=== PATIENT | male | born 1930 | race Caucasian/White ===

== ENCOUNTER 2016-09-09 12:40 | Inpatient (IN) ==
--- NOTE | 2016-09-09 12:50 | Emergency Department Note ---
Disposition Clinical Impression: CKD (chronic kidney disease), stage III, Edema, CHF (congestive heart failure) , Elevated troponin, Anemia, Acute on chronic diastolic (congestive) heart failure, Frail elderly Disposition: Admitted As Inpatient Condition: Fair Referrals: NO,PCP [Primary Care Provider] - Forms: ED Satisfaction Letter General Adult HPI - General Chief complaint: ED Shortness of Breath/Dyspnea Stated complaint: nica /cough Time Seen by Provider: 09/09/16 12:49 - History of Present Illness HPI Narrative: 85-year-old male with multiple medical problems reports to the ED via EMS for concerns for progressive shortness of breath and leg swelling. The patient has a known history of CHF and renal insufficiency. The patient reportedly has a history of atrial fibrillation. His family reports they do not think he is anticoagulated. He has a history of COPD and usually wears 3 L of oxygen. He has had a slight cough. He has not coughed up any blood. There is no history of syncope. No trouble moving the arms or legs independently no history of slurred speech or acute confusion. There is no history of fever abdominal pain vomiting or diarrhea. The patient usually takes Lasix but reports he may have not taken as much as he needs to. The patient lives in a group home. There is no history of runny nose or ear pain or sore throat. No headache or neck stiffness rash or fever. No recent falls or injuries. - Related Data Home Medications Medication Instructions Recorded Confirmed Aspirin Enteric Coated [Aspirin EC] 81 mg PO DAILY 03/12/16 04/05/16 Budesonide/Formoterol 160/4.5 2 puff IH BIDR 03/12/16 04/05/16 [Symbicort 160/4.5] Carvedilol 3.125 mg PO BID 03/12/16 04/05/16 Insulin LISPRO [Humalog] 0 unit SQ AD 03/12/16 04/05/16 Ipratropium/Albuterol Neb [Duoneb] 3 ml IH Q6H 03/12/16 04/05/16 Multivitamin [One Daily Essential] 1 each PO DAILY 03/12/16 04/05/16 Ondansetron HCl [Zofran] 4 mg PO Q6H PRN 03/12/16 04/05/16 Simvastatin [Zocor] 20 mg PO HS 03/12/16 04/05/16 TraMADol [Ultram] 50 mg PO QID PRN 03/12/16 04/05/16 Previous Rx's Medication Instructions Recorded Pantoprazole Sodium [Protonix] 40 mg PO BID 30 Days 03/15/16 Sucralfate [Carafate] 1 gm PO QIDAC 30 Days 03/15/16 Darbepoetin [Aranesp] 100 mcg SQ QWEEK syringe 04/10/16 Furosemide [Lasix] 40 mg PO BID #120 tab 04/10/16 Allergies Allergy/AdvReac Type Severity Reaction Status Date / Time No Known Allergies Allergy Verified 08/12/15 10:35 All systems ED: reviewed and negative except as stated. Past Medical History - Past Medical History Medical history: Reports: atrial fibrillation, cardiomyopathy, CHF, diabetes, hyperlipidemia, hypertension, renal disease Surgical history: Reports: pacemaker/AICD, other Psychiatric history: Reports: no psych history - Social History Smoking Status: Former smoker Smokeless Tobacco Status: No Alcohol use: Reports: none Drug use: Reports: none Physical Exam - General Limitations: no limitations General appearance: alert, in no apparent distress - Head Head exam: atraumatic, normocephalic, normal inspection - Eye Eye exam: Present: normal appearance, PERRL, EOMI - ENT ENT exam: normal exam, normal oropharynx, mucous membranes moist, TM's normal bilaterally, normal external ear exam - Neck Neck exam: Present: normal inspection, full ROM, trachea midline - Chest Chest inspection: Present: symmetric chest wall rise. Absent: tenderness - Respiratory Respiratory exam: Present: prolonged expiratory phase. Absent: respiratory distress - Cardiovascular Cardiovascular exam: Present: normal rhythm, tachycardia - Abdominal Exam Abdominal exam: Present: soft, Non-Tender, normal bowel sounds. Absent: tenderness, distention, guarding, rebound, rigidity, pulsatile mass - Extremities Exam Extremities exam: Present: full ROM, normal capillary refill, pedal edema, other (Notable edema both legs). Absent: normal inspection, tenderness, joint swelling, calf tenderness - Expanded Lower Extremity Exam Hip/Pelvis exam: Absent: tenderness Upper leg exam: Absent: tenderness Knee exam: Absent: tenderness Lower leg exam: Absent: tenderness, Homans' sign Neurovascular/Tendon exam: Absent: motor deficit, sensory deficit, tendon deficit, extremity cold to touch - Back Exam Back exam: Present: full ROM, vertebral tenderness. Absent: normal inspection, tenderness, CVA tenderness (R), CVA tenderness (L) - Neurological Exam Neurological exam: Present: alert, oriented X3, CN II-XII intact. Absent: motor sensory deficit - Psychiatric Psychiatric exam: Present: normal affect, normal mood - Skin Skin exam: Present: warm, dry, intact, normal color. Absent: rash, cyanosis, diaphoresis Course Vital Signs Temperature 97.2 F L 09/09/16 12:42 Pulse Rate 103 09/09/16 12:42 Respiratory Rate 18 09/09/16 12:42 Blood Pressure 125/90 09/09/16 12:42 O2 Sat by Pulse Oximetry 97 09/09/16 12:42 Temperature 97.2 F L 09/09/16 12:42 Pulse Rate 103 09/09/16 12:42 Respiratory Rate 18 09/09/16 14:37 Blood Pressure 125/90 09/09/16 14:37 O2 Sat by Pulse Oximetry 97 09/09/16 14:37 Oxygen Delivery Oxygen Delivery Nasal Cannula Medical Decision Making - [facility] Narrative Medical decision making narrative: He patient is elderly, somewhat tachycardic, he has significant lower extremity edema with a markedly elevated BNP and elevated troponin. His chest x-ray shows pulmonary congestion and he is complaining of dyspnea. The patient has multiple comorbidities and has been progressively more dyspneic. He was given nitro paste aspirin and Lasix in the ED. Patient has a pacemaker in situ. Initial breathing treatment was also given. The patient is currently stable. Based on his acute dyspnea, abnormal chest x-ray and cardiac markers, I think could be appropriate to admit the patient for further evaluation and treatment. The patient is currently stable. I have consulted with the hospitalist on- call. - Lab Data Lab results reviewed: Yes I reviewed the patient's lab results. Result diagrams: 09/09/16 13:21 09/09/16 13:21 Lab Results 09/09/16 09/09/16 09/09/16 Range/Units 13:20 13:21 13:21 WBC 6.5 (4.3-11.1) K/mcL RBC 3.56 L (4.19-5.50) M/mcL Hgb 9.6 L (12.9-16.9) g/dL Hct 33.6 L (37.5-50.1) % MCV 94.4 (83.0-100.0) fL MCH 27.0 L (28.0-33.3) pg MCHC 28.6 L (31.6-35.5) g/dL RDW 13.6 (11.5-14.5) % Plt Count 126 L (140-400) K/mcL MPV 12.0 (9.4-12.4) fL Immature Gran % 1.8 (0-4) % Seg Neutrophils % 79.9 % Lymphocytes % 11.3 % Monocytes % 6.0 % Eosinophils % 0.5 % Basophils % 0.5 % Neutrophils # 5.2 (1.6-8.9) K/mcL Lymphocytes # 0.7 (0.6-4.6) K/mcL Monocytes # 0.4 (0.0-1.3) K/mcL Eosinophils # 0.0 (0.0-0.6) K/mcL Basophils # 0.0 (0.0-0.2) K/mcL PT (9.4-12.1) Seconds INR APTT (26.0-36.0) Seconds Sodium 144 (136-145) mEq/L Potassium 4.7 H (3.5-4.5) mEq/L Chloride 105 (98-109) mEq/L Carbon Dioxide 28 (19-29) mEq/L BUN 112 H (8-26) mg/dL Creatinine 3.25 H (0.72-1.25) mg/dL Est GFR ( Amer) 22 L (> 60) Est GFR (Non-Af Amer) 18 L (> 60) BUN/Creatinine Ratio 34 H (6-26) Glucose 137 H (70-99) mg/dL Calculated Osmolality 336 H (280-300) Lactic Acid 0.7 (0.5-2.2) mmol/L Calcium 9.7 (8.6-10.8) mg/dL Total Bilirubin 0.5 (0.2-1.2) mg/dL Direct Bilirubin 0.3 (0.0-0.5) mg/dL Indirect Bilirubin 0.2 (0.0-1.2) mg/dL AST 22 (5-34) Units/L ALT 17 (0-55) Units/L Alkaline Phosphatase 74 (38-126) Units/L Troponin I (0-0.03) ng/mL B-Natriuretic Peptide (0-100) pg/mL Serum Total Protein 7.4 (6.0-8.3) g/dL Albumin 3.8 (3.5-5.0) g/dL Globulin 3.6 H (2.4-3.5) g/dL Albumin/Globulin Ratio 1.1 (1.1-2.2) 09/09/16 09/09/16 09/09/16 Range/Units 13:21 13:21 13:21 WBC (4.3-11.1) K/mcL RBC (4.19-5.50) M/mcL Hgb (12.9-16.9) g/dL Hct (37.5-50.1) % MCV (83.0-100.0) fL MCH (28.0-33.3) pg MCHC (31.6-35.5) g/dL RDW (11.5-14.5) % Plt Count (140-400) K/mcL MPV (9.4-12.4) fL Immature Gran % (0-4) % Seg Neutrophils % % Lymphocytes % % Monocytes % % Eosinophils % % Basophils % % Neutrophils # (1.6-8.9) K/mcL Lymphocytes # (0.6-4.6) K/mcL Monocytes # (0.0-1.3) K/mcL Eosinophils # (0.0-0.6) K/mcL Basophils # (0.0-0.2) K/mcL PT 13.1 H (9.4-12.1) Seconds INR 1.2 APTT 39.2 H (26.0-36.0) Seconds Sodium (136-145) mEq/L Potassium (3.5-4.5) mEq/L Chloride (98-109) mEq/L Carbon Dioxide (19-29) mEq/L BUN (8-26) mg/dL Creatinine (0.72-1.25) mg/dL Est GFR ( Amer) (> 60) Est GFR (Non-Af Amer) (> 60) BUN/Creatinine Ratio (6-26) Glucose (70-99) mg/dL Calculated Osmolality (280-300) Lactic Acid (0.5-2.2) mmol/L Calcium (8.6-10.8) mg/dL Total Bilirubin (0.2-1.2) mg/dL Direct Bilirubin (0.0-0.5) mg/dL Indirect Bilirubin (0.0-1.2) mg/dL AST (5-34) Units/L ALT (0-55) Units/L Alkaline Phosphatase (38-126) Units/L Troponin I 0.11 H* (0-0.03) ng/mL B-Natriuretic Peptide 2601 H (0-100) pg/mL Serum Total Protein (6.0-8.3) g/dL Albumin (3.5-5.0) g/dL Globulin (2.4-3.5) g/dL Albumin/Globulin Ratio (1.1-2.2) - Radiology Data Radiology results reviewed: Yes I reviewed the patient's radiology results.
[2016-09-09 13:40] LABS: Basophils % 0.5 %; Eosinophils % 0.5 %; Hematocrit 33.6 % (37.5-50.1); Hemoglobin 9.6 g/dL (12.9-16.9); INR 1.2; Immature Granulocytes % 1.8 % (0-4); Lymphocytes # 0.7 K/mcL (0.6-4.6); Lymphocytes % 11.3 %; Mean Corpuscular HGB Conc 28.6 g/dL (31.6-35.5); Mean Corpuscular Volume 94.4 fL (83.0-100.0); Monocytes # 0.4 K/mcL (0.0-1.3); Neutrophils # 5.2 K/mcL (1.6-8.9); Platelet Count 126 K/mcL (140-400); Prothrombin Time 13.1 Seconds (9.4-12.1); Red Blood Count 3.56 M/mcL (4.19-5.50); Red Cell Distribution Width 13.6 % (11.5-14.5); Segmented Neutrophils % 79.9 %
[2016-09-09 13:42] LABS: Activated Partial Thrombo Time 39.2 Seconds (26.0-36.0)
[2016-09-09 13:59] LABS: Albumin 3.8 g/dL (3.5-5.0); Albumin/Globulin Ratio 1.1 (1.1-2.2); Bilirubin,Direct 0.3 mg/dL (0.0-0.5); Bilirubin,Indirect 0.2 mg/dL (0.0-1.2); Bilirubin,Total 0.5 mg/dL (0.2-1.2); Calcium 9.7 mg/dL (8.6-10.8); Globulin 3.6 g/dL (2.4-3.5); Potassium 4.7 mEq/L (3.5-4.5); Total Protein 7.4 g/dL (6.0-8.3)
[2016-09-09] MEDS ORDERED: Ipratropium/Albuterol Neb 3 ML IH ONE (14:06)
[2016-09-09] MEDS ORDERED: Aspirin 325 MG TABLET PO ONE (14:18)
[2016-09-09] MEDS ORDERED: Furosemide 80 MG in 0.9 % Sodium Chloride 50 ML IVPB ONE (14:26)
[2016-09-09] MEDS ORDERED: Nitroglycerin 1 INCH/GM PACKET TP ONE (14:27)
[2016-09-09] MEDS ORDERED: Naloxone 0.4 MG/ML INJ IVP PRN (18:07)
[2016-09-09] MEDS ORDERED: Ondansetron 4 MG/2 ML VIAL IVP PRN (18:07)
[2016-09-09] MEDS ORDERED: Dextrose Gel 15 GM PO PRN ×2 (18:59)
[2016-09-09] MEDS ORDERED: *HR* Dextrose 50 % in Water (Syg) 50 ML SYRINGE IVP PRN (18:59)
[2016-09-09] MEDS ORDERED: D5% in Water 1,000 ML IV PRN (18:59)
[2016-09-09] MEDS ORDERED: Artificial Tears SOLN 15 ML BOTTLE OP PRN (19:13)
--- NOTE | 2016-09-09 19:15 | Internal Med History&Physical ---
Date of Encounter: 09/10/16 Time of Encounter: 18:30 Assessment and Plan (1) Acute exacerbation of CHF (congestive heart failure) Current visit: No Status: Acute 1. She has been experiencing increasing shortness of breath as well as increasing lower extremity edema. He has been on Lasix 80 twice a day with no relief Patient's last echo in 01/12 showed EF was 40 with mild to moderate systolic failure. We will obtain an echo 2 we will continue with Lasix 60 twice a day 3 consult nephrology concerning worsening CHF and rising creatinine 4 continue with oxygen maintain SPO2 greater than 92% 5 continue with beta katy (2) Acute on chronic renal failure Current visit: Yes Status: Acute 1 patient has had increase in his creatinine 3.5 . His baseline is 1.5-2.5. Some pulmonary congestion on his x-ray as well as increased swelling lower extremities. We will continue with IV Lasix 60 mg twice a day-closely watch creatinine 2 we will consult nephrology concerning diuresing and edema 3 monitor intake and output-Place Dawkins 4 daily weights 5 avoid nephrotoxins 6 renal diet 7 we will will obtain a renal ultrasound to rule out possibly obstruction (3) Elevated troponin Current visit: Yes Status: Acute 1 this appears to be chronic-we will cycle troponin 2 continuous cardiac monitoring (4) DVT prophylaxis Current visit: No Status: Acute Heparin subcutaneous (5) A-fib Current visit: No Status: Chronic 1 she has history of paroxysmal atrial fibrillation. He is previously on Coumadin however this was stopped due to a GI bleed. Nares on aspirin. We will continue with aspirin 2 cardiac monitoring Qualifiers: Qualified Code(s): I48.2 - Chronic atrial fibrillation Internal Medicine - H&P: HPI Chief complaint: Swelling Admitted From: Emergency Dept Plans for Post Hospital Care: Transfer Alf Facility History of present illness: Mr. Deal is a 85 year old male with extensive medical history including CK D stage III systolic heart failure pacemaker placement diabetes atrial fibrillation hyperlipidemia hypertension GI bleeding. Patient resides at [facility] according to medical records the patient was experiencing increasing shortness of breath as well as leg swelling. The patient has a known history of CHF and renal insufficiency he is on Lasix twice a day. He has chronic swelling of his lower extremities however the swelling has increased to the point he is unable to ambulate with his walker. He does wear oxygen at 3 L nasal cannula which has not improved his shortness of breath. He has had a productive cough he denies any fevers chills chest pain nausea vomiting or diarrhea. Patient was transported to the ER for further workup and evaluation. According to the ER note patient presented somewhat tachycardic with significant lower extremity edema. He had elevated BNP 2601 and elevated troponin at 0.11 however patient has chronically elevated troponins. His chest x-ray revealed pulmonary congestion. The patient was given breathing treatments and IV Lasix, his respiratory status improve he is admitted for further work up evaluation. Presently patient does not appear to be respiratory distress he is actually sleeping he arouses to verbal stimuli and answers questions appropriately. Presently denies any chest pain. Upon assessment he does have some scattered crackles and rhonchi in lung owne he has lower extremity edema is oxygen saturation is 95-97% on 2 L nasal cannula. He appears to be hemodynamically stable at this time.I reviewed this case with Dr Overton who agrees with plan assessment/plan DM type 2- accucheck Ac/HS SSI as needed goal posprandial less than 180 Past Med Surg Social Fam HX - Past Medical History Medical history: atrial fibrillation, cardiomyopathy, CHF, diabetes, hyperlipidemia, hypertension, renal disease Psychiatric history: no psych history - Past Surgical History Surgical History: pacemaker/AICD, other - Social History Smoking Status: Former smoker Smokeless Tobacco Status: No Alcohol use: none Drug use: none - Family History Mother Living Status: Hx Family Cardiac Disorders: Yes Hx Family Cancer: Yes ("female cancer") Father Living Status: Hx Family Cancer: Yes (lung cancer) Sister Adopted: No Living Status: Hx Family Cancer: Yes (1) "female cancer" 2) breast cancer) Internal Medicine - H&P: Meds Aspirin Enteric Coated [Aspirin EC] 81 mg PO DAILY 03/12/16 [History] Carvedilol 3.125 mg PO BID 03/12/16 [History] Insulin LISPRO [Humalog] 2 - 12 unit SQ AD 03/12/16 [History] Ipratropium/Albuterol Neb [Duoneb] 3 ml IH Q6H 03/12/16 [History] Multivitamin [One Daily Essential] 1 each PO DAILY 03/12/16 [History] Ondansetron HCl [Zofran] 4 mg PO Q6H PRN 03/12/16 [History] Simvastatin [Zocor] 20 mg PO HS 03/12/16 [History] Sucralfate [Carafate] 1 gm PO QIDAC 30 Days 03/15/16 [Rx] Darbepoetin [Aranesp] 100 mcg SQ QMONTH 09/09/16 [History] Fluticasone/Salmeterol [Advair 500-50 Diskus] 1 puff IH BID 09/09/16 [History] Furosemide [Lasix] 80 mg PO BID 09/09/16 [History] Guaifenesin [Diabetic Tussin Ex] 100 mg PO Q6H PRN 09/09/16 [History] Loratadine [Allergy Relief] 10 mg PO DAILY 09/09/16 [History] Omeprazole [PriLOSEC] 20 mg PO BID 09/09/16 [History] Polyvinyl Alcohol [Artificial Tears] 1 drop OP TID PRN 09/09/16 [History] Sodium Chloride/Aloe Vera [[place] Saline Nasal Gel [place]] 1 spr NS TID 09/09/16 [ History] Allergies No Known Allergies Allergy (Verified 08/12/15 10:35) All Systems PM: A 10-system review of systems was performed and is negative for pertinent findings except as documented above in the HPI. - Constitutional Constitutional: weakness, weight gain - EENT Eyes: no change in vision, no discharge, no pain, no photophobia - Cardiovascular Cardiovascular ROS IM: dyspnea, dyspnea on exertion, edema - Respiratory Respiratory: cough, dyspnea on exertion - Gastrointestinal Gastrointestinal: no abdominal pain, no diarrhea, no hematemesis, no hematochezia, no melena, no nausea, no vomiting - Musculoskeletal Musculoskeletal ROS IM: no numbness, no tingling - Integumentary Integumentary IM: no rash, no unusual bruising - Neurological Neurological ROS: no confusion, no convulsions, no focal weakness, no numbness, no tingling, no tremor(s) - Constitutional Vitals: Temp Pulse Resp BP Pulse Ox 97.5 F L 105 18 113/88 94 L 09/09/16 19:12 09/09/16 19:12 09/09/16 19:12 09/09/16 18:02 09/09/16 19:12 General appearance: Present: A&O X 3, answers questions appropriately - Head Head exam: Present: atraumatic, normocephalic - Neck Neck exam general surgery: Present: supple, trachea midline. Absent: lymphadenopathy - Respiratory Respiratory exam: Present: rales, rhonchi. Absent: accessory muscle use, wheezes - Cardiovascular Cardiovascular exam: Present: RRR, +S1, +S2. Absent: diastolic murmur, gallop, rubs, systolic murmur - GI/Abdominal GI/Abdominal exam: Present: normal bowel sounds, soft, no peritoneal signs. Absent: distended, tenderness - Extremities Exam Extremities exam: Present: pedal edema, warm, radial pulses palpable and symetrical. Absent: calf tenderness, cyanotic Additional comments: +2-+3 pedal edema bilat - Neurological Exam Neurological exam: Present: CN II-XII intact, oriented X3, no focal deficits. Absent: pronater drift, facial droop, speech deficit - Skin Skin exam: Present: dry, intact Internal Med - H&P Results - Labs CBC & Chem 7: 09/09/16 13:21 09/09/16 13:21 - Diagnostic Studies Chest x-ray Additional comments: Per radiology read mild bibasilar atelectasis and pulmonary vascular congestion
[2016-09-09] MEDS: SODIUM CHLORIDE NS SCH (20:02)
[2016-09-09] MEDS: ALOE VERA NS SCH (20:02)
[2016-09-09] MEDS: Sucralfate 1 GM TABLET PO SCH (20:03)
[2016-09-09] MEDS: Budesonide/Formoterol 160/4.5 MDI IH SCH (22:10)
[2016-09-09] MEDS: Ipratropium/Albuterol Neb 3 ML IH SCH (22:11)
[2016-09-09] MEDS ORDERED: Furosemide 40 MG/4 ML VIAL IVP SCH ×3 (22:18→23:00)
[2016-09-09] MEDS ORDERED: Calcium Gluconate 1,000 MG in D5% in Water 100 ML IVPB ONE (22:25)
--- NOTE | 2016-09-09 22:28 | Event Note ---
Date of Encounter: 09/09/16 Time of Encounter: 22:25 Patient seen and examined with nurse practitioner. Patient presents with a picture of congestive heart failure. He has worsening kidney functions. Currently CKD stage IV. His Lasix has been increased at [facility] to 80 mg twice a day without improvement. We will place a Dawkins catheter to monitor urine output and without obstruction. Renal ultrasound will be performed. Lasix 60 mg intravenous twice a day will be started. Monitor urine output. Nephrology to see the patient.
[2016-09-09] MEDS: Insulin LISPRO 300 UNITS/3 ML VIAL SQ SCH (22:29)
[2016-09-10 01:53] LABS: Eosinophils % 0.4 %; Hemoglobin 9.4 g/dL (12.9-16.9); Immature Granulocytes % 1.3 % (0-4); Platelet Count 113 K/mcL (140-400)
[2016-09-10 01:58] LABS: Basophils % 0.5 %; Hematocrit 32.1 % (37.5-50.1); Lymphocytes # 0.9 K/mcL (0.6-4.6); Lymphocytes % 15.2 %; Mean Corpuscular HGB Conc 29.3 g/dL (31.6-35.5); Mean Corpuscular Hemoglobin 27.8 pg (28.0-33.3); Mean Platelet Volume 12.3 fL (9.4-12.4); Monocytes # 0.6 K/mcL (0.0-1.3); Monocytes % 10.2 %; Nucleated Red Blood Cells 0.4 /100 WBC (0); Red Blood Count 3.38 M/mcL (4.19-5.50); Red Cell Distribution Width 13.8 % (11.5-14.5); Segmented Neutrophils % 72.4 %
[2016-09-10 02:01] LABS: Calcium 9.7 mg/dL (8.6-10.8); Magnesium 2.3 mg/dL (1.6-2.6); Phosphorous 6.8 mg/dL (2.3-4.7); Potassium 4.7 mEq/L (3.5-4.5)
[2016-09-10 02:02] LABS: Neutrophils # 4.1 K/mcL (1.6-8.9)
[2016-09-10 02:28] LABS: Hypochromasia Present (Not Present); Ovalocytes 1+ (Not Present); Platelet Estimate Decreased (Normal)
[2016-09-10] MEDS: Ipratropium/Albuterol Neb 3 ML IH SCH ×4 (04:33→22:22)
[2016-09-10] MEDS: Insulin LISPRO 300 UNITS/3 ML VIAL SQ SCH ×4 (08:06→21:50)
[2016-09-10] MEDS: Budesonide/Formoterol 160/4.5 MDI IH SCH ×2 (09:06→22:22)
[2016-09-10] MEDS: Sucralfate 1 GM TABLET PO SCH ×4 (10:05→21:59)
[2016-09-10] MEDS: Aspirin Enteric Coated 81 MG Tablet PO SCH (10:05)
[2016-09-10] MEDS: Multivit/Ca/Min/Fe/FA 1 TAB TABLET PO SCH (10:05)
[2016-09-10] MEDS: *HR* Heparin 5,000 UNIT/ML VIAL SQ SCH ×2 (10:05→17:09)
[2016-09-10] MEDS: Loratadine 10 MG TABLET PO SCH (10:05)
[2016-09-10] MEDS: Furosemide 40 MG/4 ML VIAL IVP SCH ×2 (10:06→17:08)
[2016-09-10] MEDS: ALOE VERA NS SCH ×3 (10:07→22:00)
[2016-09-10] MEDS: SODIUM CHLORIDE NS SCH ×3 (10:07→22:00)
--- NOTE | 2016-09-10 13:29 | Nephrology Consult Note ---
Date of Encounter: 09/10/16 Time of Encounter: 13:00 Assessment and Plan (1) DARON (acute kidney injury) Current Visit: Yes Status: Acute Elevated SCr in the setting of presumed CHF and diuretics Will check uric acid and CPK Will check urine for UA, sodium, creatinine, eosinophils and urea Will avoid all nephrotoxins if possible Goal of care discussed with patient and family and he affirms willingness to have RN OCCUPATIONAL if and when absolutely necessary (2) CKD (chronic kidney disease), stage III Current Visit: Yes Status: Chronic Baseline GFR 30-40s (3) Acute exacerbation of CHF (congestive heart failure) Current Visit: Yes Status: Acute Strict I/Os advised Continue lasix iv at current dose and add albumin to aid diuresis Keep LE elevated as much as possible Fluid restriction also advised Echo results pending Qualifiers: Congestive heart failure type: systolic Qualified Code(s): I50.23 - Acute on chronic systolic (congestive) heart failure History of Present Illness - Reason for Consult Consult date: 09/10/16 Acute Kidney Injury, Chronic Kidney Disease Requesting physician: Sandra Laws - History of Present Illness 85 y o AAmale with PMH of HTN, CAD, pAfib off coumadin due to GIB, DM, s/p pacemaker and stage 3 CKD [facility] with worsening SOB and LE edema despite lasix 80mg bid. CXR noted with congestion on presentation with diuresis initiated. Renal consulted for management of renal function during diuresis. SCr noted elevated at 3.25, GFR 22 on presentation and worsening to 3.59, GFR 20 with lasix 60mg iv bid. Baseline SCR usually in the high 1.0s around 1.6-1.9 but has had bouts of AKIs reaching 2.5 with GFR typically 30-40s. He is a poor historian, most of history obtained from records and from family present at the time of exam. He is reports his gayle was hurting but otherwise denies SOB at present. No chest pain. reviewed of meds did not show any NSAIDs use. Past Med Surg Social Fam HX - Past Medical History Medical history: atrial fibrillation, cardiomyopathy, CHF, diabetes, hyperlipidemia, hypertension, renal disease Psychiatric history: no psych history - Past Surgical History Surgical History: pacemaker/AICD, other - Social History Smoking Status: Former smoker Smokeless Tobacco Status: No Alcohol use: none Drug use: none - Family History Mother Living Status: Hx Family Cardiac Disorders: Yes Hx Family Cancer: Yes ("female cancer") Father Living Status: Hx Family Cancer: Yes (lung cancer) Sister Adopted: No Living Status: Hx Family Cancer: Yes (1) "female cancer" 2) breast cancer) Medications and Allergies Aspirin Enteric Coated [Aspirin EC] 81 mg PO DAILY 03/12/16 [History] Carvedilol 3.125 mg PO BID 03/12/16 [History] Insulin LISPRO [Humalog] 2 - 12 unit SQ AD 03/12/16 [History] Ipratropium/Albuterol Neb [Duoneb] 3 ml IH Q6H 03/12/16 [History] Multivitamin [One Daily Essential] 1 each PO DAILY 03/12/16 [History] Ondansetron HCl [Zofran] 4 mg PO Q6H PRN 03/12/16 [History] Simvastatin [Zocor] 20 mg PO HS 03/12/16 [History] Sucralfate [Carafate] 1 gm PO QIDAC 30 Days 03/15/16 [Rx] Darbepoetin [Aranesp] 100 mcg SQ QMONTH 09/09/16 [History] Fluticasone/Salmeterol [Advair 500-50 Diskus] 1 puff IH BID 09/09/16 [History] Furosemide [Lasix] 80 mg PO BID 09/09/16 [History] Guaifenesin [Diabetic Tussin Ex] 100 mg PO Q6H PRN 09/09/16 [History] Loratadine [Allergy Relief] 10 mg PO DAILY 09/09/16 [History] Omeprazole [PriLOSEC] 20 mg PO BID 09/09/16 [History] Polyvinyl Alcohol [Artificial Tears] 1 drop OP TID PRN 09/09/16 [History] Sodium Chloride/Aloe Vera [[place] Saline Nasal Gel [place]] 1 spr NS TID 09/09/16 [ History] Allergies No Known Allergies Allergy (Verified 08/12/15 10:35) Review of Systems All Systems: reviewed and no additional remarkable complaints except as stated ( 10 systems reviwed and as noted in HPI) Exam - Vital Signs Vital signs: Initial Vital Signs Temp Pulse Resp BP Pulse Ox 97.2 F L 103 18 125/90 97 09/09/16 12:42 09/09/16 12:42 09/09/16 12:42 09/09/16 12:42 09/09/16 12:42 Vital Signs - Last 8 Hours Temp Pulse Resp BP Pulse Ox 09/10/16 11:12 97.6 F 82 20 98/68 93 L 09/10/16 10:16 95 09/10/16 09:08 16 95 09/10/16 07:52 97.5 F L 71 16 121/65 95 Intake and Output 09/09/16 09/10/16 09/10/16 23:59 07:59 15:59 Intake Total 120 / 120 Output Total 250 / 250 500 / 500 Balance -250 / -250 -380 / -380 Intake: Oral 120 / 120 Output: Catheter 250 / 250 500 / 500 Other: Meal Breakfast Percent of Meal Consumed 100% # Urine Diapers 1 Weight 100 kg 102.1 kg Blood Glucose* 109 124 171 Patient Weight 09/10/16 23:59 Weight 102.1 kg - General Appearance General appearance: chronically ill (NAD) EENT: ATNC, mucous membranes dry Neck: no JVD, supple Additional Comments: decreased BS bases bilat Cardiology: edema (LE bilat +2-3), normal S1, normal S2 Gastrointestinal: no tenderness, no guarding Integumentary: warm and dry Neurologic: no focal deficit Musculoskeletal: no deformities Psychiatric: mood/affect appropriate Results - Lab Results 09/14/16 06:40 09/14/16 06:40 Most recent lab results Calcium 9.7 mg/dL (8.6-10.8) 09/10/16 01:28 Phosphorus 6.8 mg/dL (2.3-4.7) H 09/10/16 01:28 Magnesium 2.3 mg/dL (1.6-2.6) 09/10/16 01:28 Consult Discharge Plan - Plan Referrals: NO,PCP [Primary Care Provider] - (Patient will follow up with F pcp)
[2016-09-10 13:53] LABS: Bilirubin,Urine Negative (Negative); Blood,Urine Large (Negative); Clarity,Urine Turbid (Clear); Color,Urine Red (Yellow); Glucose,Urine (UA) Normal (Normal); Ketones,Urine Trace mg/dL (Negative); Leukocyte Esterase,Urine Moderate (Negative); Nitrite,Urine Negative (Negative); PH,Urine 5.5 pH Units (5.0-8.0); Protein,Urine 100 mg/dL (Neg-Trace); Specific Gravity,Urine 1.013 (1.010-1.025); Urobilinogen,Urine Normal (Normal)
[2016-09-10 13:55] LABS: Bacteria,Urine None Seen per hpf (None-Few); Hyaline Casts,Urine Few per lpf (None-Few); Squamous Epithelial Cell,Urine Many per lpf (None-Few); WBC,Urine 30-50 per hpf (0-3)
--- NOTE | 2016-09-10 14:14 | Electrocardiograph Report ---
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
--- NOTE | 2016-09-10 16:32 | Internal Med Progress Note ---
Date of Encounter: 09/10/16 Time of Encounter: 16:29 - Assessment and plan (1) Acute on chronic renal failure Current Visit: Yes Status: Acute Assessment and plan: patient has had increase in his creatinine 3.5 . His baseline is 1.5-2.5. creatinine is worse today. his urine appears grossly red. 750mls in the catheter. sent ua which shows large blood but only 3-5 rbc, sent ck levels and urine myoglobin. 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 renal has been cosnulted. renal US is pending. may need HD. (2) CHF (congestive heart failure), NYHA class III Current Visit: No Status: Chronic Assessment and plan: CXR shows mild congestion. Patient's last echo in 01/12 showed EF was 40 with mild to moderate systolic failure. We will obtain an echo continue asa, BB , statin Qualifiers: Congestive heart failure type: systolic Congestive heart failure chronicity : chronic Qualified Code(s): I50.22 - Chronic systolic (congestive) heart failure (3) NSTEMI (non-ST elevated myocardial infarction) Current Visit: No Status: Acute Assessment and plan: adynamic, denies chest pain no further intervention required. (4) History of atrial fibrillation Current Visit: No Status: Chronic (5) IDDM (insulin dependent diabetes mellitus) Current Visit: No Status: Chronic (6) COPD (chronic obstructive pulmonary disease) Current Visit: No Status: Chronic Assessment and plan: stable Qualifiers: COPD type: emphysema Emphysema type: centrilobular Qualified Code(s): J43.2 - Centrilobular emphysema - Time Spent With Patient 25 - 35 minutes - Subjective Interval history: seen at the bedside,patient appear to be in no acute respiratory distress. he was brought from [facility] for worsening swelling and sob. workup showed worsening renal function, he hs red urine in the gayle. nephrology has been consulted. - Constitutional Vitals: Temp Pulse Resp BP Pulse Ox 97.7 F 92 18 112/70 98 09/10/16 16:23 09/10/16 16:23 09/10/16 16:23 09/10/16 16:23 09/10/16 16:23 General appearance: Present: A&O X 3, answers questions appropriately Exam: - Head Head exam: Present: atraumatic, normocephalic - Neck Neck exam general surgery: Present: supple, trachea midline. Absent: lymphadenopathy - Respiratory Respiratory exam: Present: occ basilar rales.. Absent: accessory muscle use, wheezes - Cardiovascular Cardiovascular exam: Present: RRR, +S1, +S2. Absent: diastolic murmur, gallop, rubs, systolic murmur - GI/Abdominal GI/Abdominal exam: Present: normal bowel sounds, soft, no peritoneal signs. Absent: distended, tenderness - Extremities Exam Extremities exam: Present: pedal edema, warm, radial pulses palpable and symetrical. Absent: calf tenderness, cyanotic Additional comments: +2-+3 pedal edema bilat - Neurological Exam Neurological exam: Present: CN II-XII intact, oriented X3, no focal deficits. Absent: pronater drift, facial droop, speech deficit - Skin Skin exam: Present: dry, intact Internal Medicine: Result - Labs CBC & Chem 7: 09/10/16 01:28 09/10/16 01:28 Labs: Short CBC 09/10/16 Range/Units 01:28 WBC 5.6 (4.3-11.1) K/mcL Hgb 9.4 L (12.9-16.9) g/dL Hct 32.1 L (37.5-50.1) % Plt Count 113 L (140-400) K/mcL Neutrophils # 4.1 (1.6-8.9) K/mcL BMP 09/10/16 01:28 Sodium 144 Potassium 4.7 H Chloride 104 Carbon Dioxide 31 H BUN 118 H Creatinine 3.59 H Glucose 142 H Calcium 9.7 Cardiac Enzymes 09/09/16 09/10/16 Range/Units 19:02 01:28 Troponin I 0.12 H* 0.12 H* (0-0.03) ng/mL Urine 09/10/16 Range/Units 13:46 Urine Color Red A (Yellow) Urine Clarity Turbid A (Clear) Urine pH 5.5 (5.0-8.0) pH Units Ur Specific [place] 1.013 (1.010-1.025) Urine Protein 100 H (Neg-Trace) mg/dL Urine Glucose (UA) Normal (Normal) mg/dL - ABG Interpretation ABG results: PT/INR, D-dimer PT 13.1 Seconds (9.4-12.1) H 09/09/16 13:21 Consult Discharge Plan - Plan Referrals: NO,PCP [Primary Care Provider] -
[2016-09-10] MEDS: Albumin 25% 25gram/100mL 25 GM/100 ML IV.SOLN IVPB SCH (17:01)
[2016-09-11] MEDS: Acetaminophen 325 MG TABLET PO PRN (00:04)
[2016-09-11] MEDS: Ipratropium/Albuterol Neb 3 ML IH SCH ×2 (04:45→10:42)
[2016-09-11] MEDS: *HR* Heparin 5,000 UNIT/ML VIAL SQ SCH ×2 (06:07→19:11)
[2016-09-11 07:22] LABS: Basophils % 0.5 %; Eosinophils # 0.1 K/mcL (0.0-0.6); Eosinophils % 1.3 %; Hematocrit 29.2 % (37.5-50.1); Hemoglobin 8.8 g/dL (12.9-16.9); Immature Granulocytes % 0.5 % (0-4); Lymphocytes # 0.8 K/mcL (0.6-4.6); Lymphocytes % 14.4 %; Mean Corpuscular HGB Conc 30.1 g/dL (31.6-35.5); Mean Corpuscular Hemoglobin 27.5 pg (28.0-33.3); Mean Corpuscular Volume 91.3 fL (83.0-100.0); Mean Platelet Volume 12.2 fL (9.4-12.4); Monocytes # 0.5 K/mcL (0.0-1.3); Monocytes % 8.8 %; Neutrophils # 4.1 K/mcL (1.6-8.9); Platelet Count 107 K/mcL (140-400); Red Cell Distribution Width 13.9 % (11.5-14.5); Segmented Neutrophils % 74.5 %
[2016-09-11 07:25] LABS: Calcium 9.2 mg/dL (8.6-10.8)
[2016-09-11] MEDS: Insulin LISPRO 300 UNITS/3 ML VIAL SQ SCH ×4 (07:48→21:37)
[2016-09-11] MEDS: SODIUM CHLORIDE NS SCH ×2 (07:49→14:15)
[2016-09-11] MEDS: ALOE VERA NS SCH ×2 (07:49→14:15)
[2016-09-11] MEDS: Aspirin Enteric Coated 81 MG Tablet PO SCH (08:00)
[2016-09-11] MEDS: Sucralfate 1 GM TABLET PO SCH ×4 (08:01→21:36)
[2016-09-11] MEDS: Loratadine 10 MG TABLET PO SCH (08:01)
[2016-09-11] MEDS: Multivit/Ca/Min/Fe/FA 1 TAB TABLET PO SCH (08:01)
[2016-09-11] MEDS: Furosemide 40 MG/4 ML VIAL IVP SCH ×2 (08:03→19:11)
[2016-09-11] MEDS: Albumin 25% 25gram/100mL 25 GM/100 ML IV.SOLN IVPB SCH ×2 (08:12→19:11)
--- NOTE | 2016-09-11 09:53 | ECHO - Doppler Report ---
Echocardiogram Name: Jose Deal Date of Study: 09/10/2016 Date: 1930 Ht: 71.0 in Medical Record#: [id number] Age: 85 Wt: 225.0 lb Gender: Male BSA: 2.22 Order #: [id number] Location: [facility] Room #: 2A36 Reading Physician: Brown Long DO, CORINNA, GUILLERMINA DIOR Synchro Assembler: Rosy Faustin RDCS Ordering Physician: Michael Beckett MD Primary Physician: None Indications: Shortness of breath Impressions: LVEF 25-30%. Severely dilated left ventricle. Global left ventricular systolic dysfunction with regional variations. Atypical septal motion consistent with paced rhythm. Indeterminate diastolic function. Dilated appearing right ventricle with mild hypokinesis. Severely dilated left atrium. Severely dilated right atrium. Mild-moderate mitral regurgitation. Mild-moderate tricuspid regurgitation. Moderate-severe pulmonary hypertension. Estimated RVSP is 54-59 mmHg, including an estimated RA pressure of 5-10 mmHg. A device lead was visualized in the right atrium and right ventricle. Left Ventricular Wall Motion: Rest Echo Findings The apex, apical inferior, mid inferior, basal inferior, apical anterior, mid anterior, basal anterior, apical septal, mid inferior septal, basal inferior septal, apical lateral, mid anterior lateral, basal anterior lateral, mid anterior septal, mid inferior lateral, basal anterior septal and basal inferior lateral yost were hypokinetic. Findings: Study Quality * Technically sub-optimal due to poor echocardiographic windows. ECG Findings * Paced rhythm. Left Ventricle * LVEF 25-30%. * Severely dilated left ventricle. * Global left ventricular systolic dysfunction with regional variations. * Atypical septal motion consistent with paced rhythm. * Indeterminate diastolic function. Right Ventricle * Dilated appearing right ventricle with mild hypokinesis. Left Atrium * Severely dilated left atrium. Right Atrium * Severely dilated right atrium. Interatrial Septum * Interatrial septum not well evaluated. Aortic Valve * Aortic valve not well visualized. * Trace aortic regurgitation. * No aortic stenosis. Mitral Valve * Mildly thickened mitral valve leaflets. * Mild-moderate mitral regurgitation. * No mitral stenosis. Tricuspid Valve * Normal tricuspid valve structure. * Mild-moderate tricuspid regurgitation. * Moderate-severe pulmonary hypertension. * Estimated RVSP is 54-59 mmHg. * Estimated RA pressure is 5-10 mmHg. Pulmonic Valve * Pulmonic valve not well visualized. Aorta * Normally sized aortic root. Pericardium * The pericardium appears normal. IVC * The IVC is dilated. * > 50% respiratory change Device lead * A device lead was visualized in the right atrium and right ventricle. Pulmonary Artery * Normal visualized portions of the main pulmonary artery. History Hypertension Diabetes Hypercholesteremia Family History of CAD History of CAD/PTCA Myocardial Infarction Congestive Heart Failure Pacer/ICD Implant 12-30-15 a Previous Echo was performed. Measurements: BP: 108/ 69 2D Normal Values RVIDd: 3.50 cm <2.7 cm IVSd: 1.00 cm 0.6 - 1.0 cm LVIDd: 7.50 cm 3.7 - 5.6 cm LVPWd: 1.20 cm 0.6 - 1.1 cm LVIDs: 7.00 cm 1.5 - 3.6 cm AO: 2.90 cm < 4.0 cm LA: 5.60 cm 2.0 - 4.0cm %FS: 6.67 cm >25 % LVOT Diam: 2.10 cm LA volume: 107 Mitral Valve Peak E:.87 m/sec Peak A:.27 m/sec E/A Ratio:3.2 Peak E' Lat Alex:5.17 cm/s Peak E' Med Alex:5 cm/s E/E' Lat Ratio:16.8 E/E' Med Ratio:17.4 Aortic Valve AI pressure Half-time: 918.00 msec Tricuspid Valve TV Regurg Peak Grad: 49.00mmHg TV Regurg Peak Alex: 3.51m/sec Updated by Brown Long DO, FACEran, GUILLERMINA DIOR on 09/11/2016 9:46:59 AM electronically signed on 09/11/2016 9:47:51 AM with status of Final Wall Motion [place]: 1=Normal, 2=Hypokinesis, 3=Akinesis, 4=Dyskinesis, 5=Aneurysmal, 6=Hyperkinetic, X=Not Visualized (Blank)=Missing
[2016-09-11] MEDS: Budesonide/Formoterol 160/4.5 MDI IH SCH ×2 (10:42→22:59)
--- NOTE | 2016-09-11 13:29 | Nephrology Progress Note ---
Date of Encounter: 09/11/16 Time of Encounter: 11:15 - Assessment and Plan (1) DARON (acute kidney injury) Current Visit: Yes Status: Acute SCr about the same at 3.55, GFR 20. Pt aware of potential need for SYNTHETIC FILAMENT EXTRUDER if renal function worsens and he is very open to this if absolutely needed UOP at 1700cc in the past 24hrs which is acceptable Continue albumin before lasix Keep LE elevated as much as possible (2) CKD (chronic kidney disease), stage III Current Visit: Yes Status: Chronic Baseline GFR typically 30-40s (3) CHF (congestive heart failure) Current Visit: Yes Status: Acute Qualifiers: Qualified Code(s): I50.23 - Acute on chronic systolic (congestive) heart failure Subjective Interval history: Pt seen and examined complaining LE edema worse when sitting up. He reports SOB about the same or slightly better Objective - Vital Signs Vital signs: Vital Signs Temp Pulse Resp BP Pulse Ox 09/11/16 11:39 97.9 F 86 19 120/76 95 09/11/16 10:42 16 96 09/11/16 08:00 96 09/11/16 07:42 97.5 F L 71 16 103/66 96 09/11/16 05:10 97.6 F 81 16 113/74 98 09/11/16 04:45 18 96 09/11/16 00:38 97.9 F 80 17 107/72 94 L 09/10/16 22:22 20 97 09/10/16 20:55 97.6 F 103 17 137/84 96 09/10/16 16:23 97.7 F 92 18 112/70 98 09/10/16 15:23 20 93 L Intake and Output 09/10/16 09/11/16 09/11/16 23:59 07:59 15:59 Intake Total 100 / 100 400 / 400 360 / 360 Output Total 950 / 950 300 / 300 0 / 0 Balance -850 / -850 100 / 100 360 / 360 Intake: IV Fluids 100 / 100 Flexbumin 25 gm In 100 ml 100 / 100 @ 60 mls/hr IVPB BIDDIURETIC BHAVYA Rx#: [id number] Oral 400 / 400 360 / 360 Output: Urine 0 / 0 Catheter 950 / 950 300 / 300 Other: Meal Breakfast Percent of Meal Consumed 60% Stool Size Moderate Stool Consistency soft Stool Color Brown # Bowel Movement Diapers 1 Weight 103 kg Blood Glucose* 115 111 163 Patient Weight 09/11/16 23:59 Weight 103 kg - General Appearance General appearance: Present: chronically ill (NAD) EENT: Present: ATNC, mucous membranes moist Neck: Present: no JVD, supple Respiratory: Present: course breath sounds Cardiology: Present: edema (LE bilat), normal S1, normal S2 Gastrointestinal: Present: no tenderness, no guarding Integumentary: Present: warm and dry Neurologic: Present: no focal deficit Musculoskeletal: Present: no deformities Psychiatric: Present: mood/affect appropriate, cooperative - Lab 09/11/16 06:37 09/11/16 06:37 Most recent lab results Calcium 9.2 mg/dL (8.6-10.8) 09/11/16 06:37 Phosphorus 6.8 mg/dL (2.3-4.7) H 09/10/16 01:28 Magnesium 2.3 mg/dL (1.6-2.6) 09/10/16 01:28 Urine Creatinine 72 mg/dL 09/10/16 13:50 Urine Sodium 44.0 mEq/L 09/10/16 13:50 Consult Discharge Plan - Plan Referrals: NO,PCP [Primary Care Provider] - (Patient will most likely go to [facility])
[2016-09-11] MEDS ORDERED: Saline Nasal Spray 44 ML BOTTLE NS PRN (14:55)
--- NOTE | 2016-09-11 17:46 | Internal Med Progress Note ---
Date of Encounter: 09/11/16 Time of Encounter: 17:42 - Assessment and plan (1) Acute on chronic renal failure Current Visit: Yes Status: Acute Assessment and plan: patient has had increase in his creatinine 3.5 . His baseline is 1.5-2.5. creatinine the same as yesterday today his urine appears much clearer today. sent ua which shows large blood but only 3-5 rbc, sent ck levels and urine myoglobin. 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 Another Possible differential is cardiorenal syndrome specially with the worsening LVEF. renal has been cosnulted. renal US is pending. Monitor the renal function. (2) CHF (congestive heart failure), NYHA class III Current Visit: No Status: Chronic Assessment and plan: CXR shows mild congestion, preseneted with SOB most likely from acute exacerbation of CHF. Patient's last echo in 01/12 showed EF was 40 with mild to moderate systolic failure. Repeat echo today shows LVEF of 25-30% with severe dilated left ventricle, we will consult cardiology for possible LHC given worsening LVEF. We will continue IV Lasix 60 twice a day for now. He still has bilateral severe swelling of his legs, continue to monitor. continue asa, BB , statin Qualifiers: Congestive heart failure type: systolic Congestive heart failure chronicity : chronic Qualified Code(s): I50.22 - Chronic systolic (congestive) heart failure (3) NSTEMI (non-ST elevated myocardial infarction) Current Visit: No Status: Acute Assessment and plan: adynamic, denies chest pain Now since the echo shows reduced EF compared to before, will consult cardiology for any further intervention regarding LHC. (4) History of atrial fibrillation Current Visit: No Status: Chronic (5) IDDM (insulin dependent diabetes mellitus) Current Visit: No Status: Chronic (6) COPD (chronic obstructive pulmonary disease) Current Visit: No Status: Chronic Assessment and plan: stable Qualifiers: COPD type: emphysema Emphysema type: centrilobular Qualified Code(s): J43.2 - Centrilobular emphysema - Time Spent With Patient 25 - 35 minutes - Subjective Interval history: seen at the bedside,patient appear to be in no acute respiratory distress and reports that he feels much better. he was brought from [facility] for worsening swelling and sob. workup showed worsening renal function, urine appears clear today. nephrology has been consulted, will follow recommendations. - Constitutional Vitals: Temp Pulse Resp BP Pulse Ox 97.2 F L 67 18 136/55 97 09/11/16 16:22 09/11/16 16:22 09/11/16 16:22 09/11/16 16:22 09/11/16 16:22 General appearance: Present: A&O X 3, answers questions appropriately Exam: - Head Head exam: Present: atraumatic, normocephalic - Neck Neck exam general surgery: Present: supple, trachea midline. Absent: lymphadenopathy - Respiratory Respiratory exam: Present: Bilateral clear Absent: accessory muscle use, wheezes - Cardiovascular Cardiovascular exam: Present: RRR, +S1, +S2. Absent: diastolic murmur, gallop, rubs, systolic murmur - GI/Abdominal GI/Abdominal exam: Present: normal bowel sounds, soft, no peritoneal signs. Absent: distended, tenderness - Extremities Exam Extremities exam: Present: pedal edema, warm, radial pulses palpable and symetrical. Absent: calf tenderness, cyanotic Additional comments: +3 pedal edema bilat - Neurological Exam Neurological exam: Present: CN II-XII intact, oriented X3, no focal deficits. Absent: pronater drift, facial droop, speech deficit - Skin Skin exam: Present: dry, intact Internal Medicine: Result - Labs CBC & Chem 7: 09/11/16 06:37 09/11/16 06:37 Labs: Short CBC 09/11/16 Range/Units 06:37 WBC 5.6 (4.3-11.1) K/mcL Hgb 8.8 L (12.9-16.9) g/dL Hct 29.2 L (37.5-50.1) % Plt Count 107 L (140-400) K/mcL Neutrophils # 4.1 (1.6-8.9) K/mcL BMP 09/11/16 06:37 Sodium 145 Potassium 4.0 Chloride 104 Carbon Dioxide 30 H BUN 115 H Creatinine 3.55 H Glucose 115 H Calcium 9.2 - ABG Interpretation ABG results: PT/INR, D-dimer PT 13.1 Seconds (9.4-12.1) H 09/09/16 13:21 Consult Discharge Plan - Plan Referrals: NO,PCP [Primary Care Provider] - (Patient will most likely go to [facility])
[2016-09-11] MEDS: Ipratropium/Albuterol Neb 3 ML IH PRN (22:59)
[2016-09-12] MEDS: Acetaminophen 325 MG TABLET PO PRN ×2 (04:14→21:07)
[2016-09-12] MEDS: *HR* Heparin 5,000 UNIT/ML VIAL SQ SCH ×2 (06:33→20:48)
[2016-09-12] MEDS: Insulin LISPRO 300 UNITS/3 ML VIAL SQ SCH ×4 (08:38→22:00)
[2016-09-12] MEDS: Multivit/Ca/Min/Fe/FA 1 TAB TABLET PO SCH (08:40)
[2016-09-12] MEDS: Sucralfate 1 GM TABLET PO SCH ×4 (08:40→20:50)
[2016-09-12] MEDS: Loratadine 10 MG TABLET PO SCH (08:41)
[2016-09-12] MEDS: Albumin 25% 25gram/100mL 25 GM/100 ML IV.SOLN IVPB SCH ×2 (08:41→16:27)
[2016-09-12] MEDS: Furosemide 40 MG/4 ML VIAL IVP SCH ×2 (08:41→16:28)
[2016-09-12] MEDS: Aspirin Enteric Coated 81 MG Tablet PO SCH (08:41)
--- NOTE | 2016-09-12 10:17 | Cardiology Consult Note ---
<Indra Leblanc R - Last Filed: 09/12/16 10:25> Date of Encounter: 09/12/16 Time of Encounter: 10:14 Assessment and Plan (1) Acute exacerbation of CHF (congestive heart failure) Current Visit: No Status: Acute Pt presented with worsening dyspnea and LE edema. Known EF on echo 12/2014 was 35 %, then on MUGA 06/2015 EF was 22.6%. Current Echo EF 25-30%. [facility] 2010 showed minimal CAD and at that time EF was <20%. Known NICMP with variations in EF from 20-35%. Agree with IV diuresis--60mg IV BID. Cumulative I/O -1350mL. Suspect volume status multifactoral in setting of DARON on CKD. Recommend Strict I/Os, Na and fluid restriction, daily weights. Recommend elevating and wrapping lower extremities. Will continue to follow. Qualifiers: Congestive heart failure type: combined Qualified Code(s): I50.43 - Acute on chronic combined systolic (congestive) and diastolic (congestive) heart failure (2) Elevated troponin Current Visit: Yes Status: Acute Troponins 0.11, 0.12, 0.12 in setting of CHF exacerbation and DARON on CKD. Suspect demand ischemia, nondiagnostic for ACS. Medical management. Known NICMP. Minimal CAD on [facility] 2010. Pt denies chest pain. (3) Acute renal failure superimposed on stage 3 chronic kidney disease Current Visit: No Status: Acute Management per nephrology. Creatinine 3.55 today. (4) A-fib Current Visit: No Status: Chronic Known hx of A-Fib. Continue BB. Previously anticoagulated on Coumadin that was stopped for GI bleed. Continue ASA only. Qualifiers: Atrial fibrillation type: paroxysmal Qualified Code(s): I48.0 - Paroxysmal atrial fibrillation (5) Nonischemic cardiomyopathy Current Visit: No Status: Chronic EF 25-30% on echo. ICD in place. CHF exacerbation, diuresing as above plan. Continue BB. No ANISHA-i due to renal function. Discussion w patient/family: The assessment and plan as outlined above was discussed with the patient and/or family members who expressed understanding and agreement. All questions were answered. Thank you for involving us in the care of your patient. Please call with any questions. I will discuss all the above with Dr. Gil and make changes as necessary. History of Present Illness Consult date: 09/12/16 Requesting physician: Sydnee Beckett Consult reason: CHF,elevated troponin Chief complaint: dyspnea, lower extremity edema History of present illness: Mr. Deal is a 85 year old male with PMH of NICMP with known prior EF <35% s/p ICD, minimal CAD on [facility] 2010, PAF (previously on Coumadin, but stopped for GI bleed), CKD, DM that presented from [facility] for complaints of worsening dyspnea and lower extremity edema. BNP 2601, CXR mild bibasilar atelectasis and pulmonary congestion. Echo obtained during stay shows EF 25-30%, severely dilated LV--global with regional variations. Dilated RV with mild hypokinesis, severely dilated right and left atrium. Mild-moderate MR and TR, moderate- severe pulmonary hypertension est RVSP 54-59mmHg. He was found to have DARON on CKD--creatinine 3.55 today. He is being diuresed with IV Lasix 60mg BID. Troponins 0.11, 0.12, 0.12. Pt denies chest pain. Past Med Surg Social Fam HX - Past Medical History Medical history: atrial fibrillation, cardiomyopathy, CHF, diabetes, hyperlipidemia, hypertension, renal disease Psychiatric history: no psych history - Past Surgical History Surgical History: pacemaker/AICD, other - Social History Smoking Status: Former smoker Smokeless Tobacco Status: No Alcohol use: none Drug use: none - Family History Mother Living Status: Hx Family Cardiac Disorders: Yes Hx Family Cancer: Yes ("female cancer") Father Living Status: Hx Family Cancer: Yes (lung cancer) Sister Adopted: No Living Status: Hx Family Cancer: Yes (1) "female cancer" 2) breast cancer) Medications and Allergies Aspirin Enteric Coated [Aspirin EC] 81 mg PO DAILY 03/12/16 [History] Carvedilol 3.125 mg PO BID 03/12/16 [History] Insulin LISPRO [Humalog] 2 - 12 unit SQ AD 03/12/16 [History] Ipratropium/Albuterol Neb [Duoneb] 3 ml IH Q6H 03/12/16 [History] Multivitamin [One Daily Essential] 1 each PO DAILY 03/12/16 [History] Ondansetron HCl [Zofran] 4 mg PO Q6H PRN 03/12/16 [History] Simvastatin [Zocor] 20 mg PO HS 03/12/16 [History] Sucralfate [Carafate] 1 gm PO QIDAC 30 Days 03/15/16 [Rx] Darbepoetin [Aranesp] 100 mcg SQ QMONTH 09/09/16 [History] Fluticasone/Salmeterol [Advair 500-50 Diskus] 1 puff IH BID 09/09/16 [History] Furosemide [Lasix] 80 mg PO BID 09/09/16 [History] Guaifenesin [Diabetic Tussin Ex] 100 mg PO Q6H PRN 09/09/16 [History] Loratadine [Allergy Relief] 10 mg PO DAILY 09/09/16 [History] Omeprazole [PriLOSEC] 20 mg PO BID 09/09/16 [History] Polyvinyl Alcohol [Artificial Tears] 1 drop OP TID PRN 09/09/16 [History] Sodium Chloride/Aloe Vera [[place] Saline Nasal Gel [place]] 1 spr NS TID 09/09/16 [ History] Allergies No Known Allergies Allergy (Verified 08/12/15 10:35) All Systems Review: A 10-system review of systems was performed and is negative for pertinent findings except as documented above in the HPI. - Cardiovascular Cardiovascular: as per HPI, dyspnea at rest, dyspnea on exertion, leg edema - Respiratory Respiratory: dyspnea Physical Examination Vital Signs, Last 4 Hours Temp Pulse Resp BP Pulse Ox 09/12/16 08:54 96 09/12/16 08:35 98.4 F 94 20 132/82 96 Vital Signs Temp Pulse Resp BP Pulse Ox 09/12/16 08:54 96 09/12/16 08:35 98.4 F 94 20 132/82 96 09/12/16 04:51 98.3 F 105 20 128/87 94 L 09/12/16 00:30 98.2 F 90 22 122/73 98 09/11/16 23:00 20 95 09/11/16 21:12 97.8 F 102 22 150/62 98 09/11/16 16:22 97.2 F L 67 18 136/55 97 09/11/16 11:39 97.9 F 86 19 120/76 95 09/11/16 10:42 16 96 Intake and Output 09/11/16 09/12/16 09/12/16 23:59 07:59 15:59 Intake Total 100 / 100 120 / 120 Output Total 750 / 750 Balance 100 / 100 -630 / -630 Intake: IV Fluids 100 / 100 Flexbumin 25 gm In 100 ml 100 / 100 @ 60 mls/hr IVPB BIDDIURETIC BHAVYA Rx#: [id number] Oral 120 / 120 Output: Catheter 750 / 750 Other: Weight 98 kg Blood Glucose* 156 114 Patient Weight 09/12/16 23:59 Weight 98 kg General: Conversant, No Apparent Distress HEENT: Atraumatic, Normocephaly, Mucus Membranes Moist Neck: Normal carotid pulses Cardiac: Other (irregular) Lungs: Other (diminished) Neuro: Alert and responsive Abdomen: Soft, Non-Tender Skin: No rashes noted on visualized skin Musculoskeletal: No Chest Wall Tenderness Extremities: Other (3+ BLE edema) Results 09/11/16 06:37 09/11/16 06:37 - Imaging and Cardiology Chest Xray: report reviewed Echo: report reviewed - EKG Interpretation EKG results cardiology: personally reviewed, other (12 hour tele AVG HR 98, ventricularly paced) Consult Discharge Plan - Plan Referrals: NO,PCP [Primary Care Provider] - (Patient will most likely go to [facility]) <Lenore Gil - Last Filed: 09/12/16 10:44> Date of Encounter: 09/12/16 Assessment and Plan Discussion w patient/family: The assessment and plan as outlined above was discussed with the patient and/or family members who expressed understanding and agreement. All questions were answered. Thank you for involving us in the care of your patient. Please call with any questions. History of Present Illness History of present illness: Mr. Deal is a 85 year old male All Systems Review: A 10-system review of systems was performed and is negative for pertinent findings except as documented above in the HPI. Physical Examination Vital Signs, Last 4 Hours Temp Pulse Resp BP Pulse Ox 09/12/16 08:54 96 09/12/16 08:35 98.4 F 94 20 132/82 96 Results 09/11/16 06:37 09/11/16 06:37 - Attending Attestation I examined this patient and my medical decision-making was reviewed with the MACHINE CHOCOLATE MOLDER/PA/Advanced Practice Nurse/Resident Physician. I agree with the documented findings, disposition and treatment plan. Mr. Deal is known to me from the outpatient setting. He has chronic LE edema and dyspnea on home oxygen. His LE edema was slowly worsening over the last few weeks probably in part due to decompensated systolic heart failure. I increased lasix as an outpatient and creatinine initially improved but now has declined. Nephrology is involved in his care. I recommend elevating legs and wrapping them. I agree with IV diuresis for now with careful observation of kidney function. Otherwise, troponins are chronically elevated and not indicative of an ACS. He has AF with recent GI bleed on coumadin and is now on aspirin.
[2016-09-12] MEDS: Budesonide/Formoterol 160/4.5 MDI IH SCH ×2 (10:37→21:53)
[2016-09-12] MEDS: Ipratropium/Albuterol Neb 3 ML IH PRN (10:38)
--- NOTE | 2016-09-12 15:16 | Internal Med Progress Note ---
Date of Encounter: 09/12/16 Time of Encounter: 12:05 - Assessment and plan (1) DARON (acute kidney injury) Current Visit: Yes Status: Acute Assessment and plan: BUN and creatinine remain elevated. Nephrology following. On IV Lasix. Having good urine output. We will follow renal function. High risk for complications. (2) CKD (chronic kidney disease), stage III Current Visit: Yes Status: Chronic Assessment and plan: With acute kidney injury. (3) CHF (congestive heart failure), NYHA class III Current Visit: No Status: Chronic Assessment and plan: Cardiology evaluated patient. Do not recommend cardiac catheterization at this time. Recommend continuing Lasix. Close follow-up of renal function, in particular and output and daily weights. On aspirin, carvedilol and Zocor. Qualifiers: Congestive heart failure type: systolic Congestive heart failure chronicity : chronic Qualified Code(s): I50.22 - Chronic systolic (congestive) heart failure (4) COPD (chronic obstructive pulmonary disease) Current Visit: No Status: Chronic Assessment and plan: On when necessary bronchodilator nebs. Also on Symbicort. Qualifiers: COPD type: emphysema Emphysema type: centrilobular Qualified Code(s): J43.2 - Centrilobular emphysema (5) Elevated troponin Current Visit: No Status: Chronic (6) History of atrial fibrillation Current Visit: No Status: Chronic Assessment and plan: Sinus rhythm. Previously on anticoagulation but developed GI bleed. As such Coumadin was stopped and patient on aspirin alone. - Subjective Interval history: Patient is awake and alert. Denies any new complaints at this time. Having intermittent shortness of breath especially while lying down. No chest pain. No nausea or vomiting. Having good urine output. - Constitutional Vitals: Temp Pulse Resp BP Pulse Ox 98.3 F 106 19 130/86 95 09/12/16 11:58 09/12/16 11:58 09/12/16 11:58 09/12/16 11:58 09/12/16 11:58 General appearance: Present: A&O X 3, answers questions appropriately - Respiratory Respiratory exam: Present: decreased breath sounds (At bases), CTAB. Absent: accessory muscle use, rales, rhonchi, wheezes - Cardiovascular Cardiovascular exam: Present: RRR, +S1, +S2. Absent: diastolic murmur, gallop, rubs, systolic murmur - GI/Abdominal GI/Abdominal exam: Present: normal bowel sounds, soft, no peritoneal signs. Absent: distended, tenderness - Extremities Exam Extremities exam: Present: pedal edema, warm, radial pulses palpable and symetrical. Absent: calf tenderness, cyanotic - Neurological Exam Neurological exam: Present: alert, oriented X3, no focal deficits. Absent: facial droop, speech deficit Internal Medicine: Result - Labs CBC & Chem 7: 09/11/16 06:37 09/11/16 06:37 - ABG Interpretation ABG results: PT/INR, D-dimer PT 13.1 Seconds (9.4-12.1) H 09/09/16 13:21 - Impressions Impressions Retroperitoneum Ultrasound 09/11/16 18:00 IMPRESSION: 1. No hydronephrosis. 2. Hyperechoic renal parenchyma suggestive of medical renal disease. . D/ / Travis Recio MD / Travis Recio MD Interpreting Provider: Travis Recio MD - VTE Documentation of Mechanical Device: Graduated compression elastic hosiery Consult Discharge Plan - Plan Referrals: NO,PCP [Primary Care Provider] - (Patient will most likely go to ECF) - Attending Attestation This document has been at least partially created by [employer] recognition technology by Dr. Stinson. Errors in grammar, wording or other phrases may exist. If errors are found after the documentation is signed, they will be addressed individually in the addendum section of this document when appropriate.
--- NOTE | 2016-09-12 17:42 | Nephrology Progress Note ---
Date of Encounter: 09/12/16 Time of Encounter: 11:00 - Assessment and Plan (1) DARON (acute kidney injury) Current Visit: Yes Status: Acute No new labs today, will order for tomorrow UOP not impressive despite albumin and lasix. will consider adding zaroxylyn once current renal fxn known Agree with wrapping LE per cardio (2) CKD (chronic kidney disease), stage III Current Visit: Yes Status: Chronic Baseline GFR typically 30-40s (3) CHF (congestive heart failure) Current Visit: Yes Status: Acute Qualifiers: Qualified Code(s): I50.23 - Acute on chronic systolic (congestive) heart failure Subjective Interval history: Pt seen and examined with slightly less SOB and slightly improved LE edema. No new complaints Objective - Vital Signs Vital signs: Vital Signs Temp Pulse Resp BP Pulse Ox 09/12/16 16:15 98.0 F 88 16 127/86 97 09/12/16 11:58 98.3 F 106 19 130/86 95 09/12/16 10:38 32 98 09/12/16 08:54 96 09/12/16 08:35 98.4 F 94 20 132/82 96 09/12/16 04:51 98.3 F 105 20 128/87 94 L 09/12/16 00:30 98.2 F 90 22 122/73 98 09/11/16 23:00 20 95 09/11/16 21:12 97.8 F 102 22 150/62 98 Intake and Output 09/12/16 09/12/16 09/12/16 07:59 15:59 23:59 Intake Total 120 / 120 100 / 100 800 / 800 Output Total 750 / 750 125 / 125 750 / 750 Balance -630 / -630 -25 / -25 50 / 50 Intake: IV Fluids 100 / 100 Flexbumin 25 gm In 100 ml 100 / 100 @ 60 mls/hr IVPB BIDDIURETIC BHAVYA Rx#: [id number] Oral 120 / 120 800 / 800 Output: Catheter 750 / 750 125 / 125 750 / 750 Other: Meal filled water pitcher # Bowel Movements 0 Weight 98 kg Blood Glucose* 108 104 Patient Weight 09/12/16 23:59 Weight 98 kg - General Appearance General appearance: Present: chronically ill (NAD) EENT: Present: ATNC, mucous membranes moist Neck: Present: no JVD Respiratory: Present: course breath sounds Cardiology: Present: edema (LE bilat), normal S1, normal S2 Gastrointestinal: Present: no tenderness, no guarding Integumentary: Present: warm and dry Neurologic: Present: no focal deficit Musculoskeletal: Present: no deformities Psychiatric: Present: mood/affect appropriate, cooperative - Lab 09/11/16 06:37 09/11/16 06:37 Most recent lab results Calcium 9.2 mg/dL (8.6-10.8) 09/11/16 06:37 Phosphorus 6.8 mg/dL (2.3-4.7) H 09/10/16 01:28 Magnesium 2.3 mg/dL (1.6-2.6) 09/10/16 01:28 Urine Creatinine 72 mg/dL 09/10/16 13:50 Urine Sodium 44.0 mEq/L 09/10/16 13:50 - VTE Documentation of Mechanical Device: Graduated compression elastic hosiery Consult Discharge Plan - Plan Referrals: NO,PCP [Primary Care Provider] - (Patient will most likely go to ECF)
[2016-09-13 07:04] LABS: Basophils % 0.7 %; Eosinophils # 0.1 K/mcL (0.0-0.6); Eosinophils % 2.2 %; Hematocrit 31.2 % (37.5-50.1); Hemoglobin 9.2 g/dL (12.9-16.9); Immature Granulocytes % 0.7 % (0-4); Lymphocytes # 0.7 K/mcL (0.6-4.6); Lymphocytes % 16.9 %; Mean Corpuscular HGB Conc 29.5 g/dL (31.6-35.5); Mean Corpuscular Hemoglobin 27.5 pg (28.0-33.3); Mean Corpuscular Volume 93.1 fL (83.0-100.0); Mean Platelet Volume 10.8 fL (9.4-12.4); Monocytes # 0.4 K/mcL (0.0-1.3); Monocytes % 8.9 %; Neutrophils # 2.9 K/mcL (1.6-8.9); Platelet Count 103 K/mcL (140-400); Red Blood Count 3.35 M/mcL (4.19-5.50); Red Cell Distribution Width 14.3 % (11.5-14.5); Segmented Neutrophils % 70.6 %
[2016-09-13 07:24] LABS: Calcium 9.5 mg/dL (8.6-10.8); Potassium 4.2 mEq/L (3.5-4.5)
[2016-09-13] MEDS: Ipratropium/Albuterol Neb 3 ML IH PRN ×2 (07:50→15:59)
[2016-09-13] MEDS: Budesonide/Formoterol 160/4.5 MDI IH SCH ×2 (07:51→22:51)
[2016-09-13] MEDS: Insulin LISPRO 300 UNITS/3 ML VIAL SQ SCH ×4 (08:00→21:46)
[2016-09-13] MEDS: *HR* Heparin 5,000 UNIT/ML VIAL SQ SCH ×2 (08:00→21:22)
[2016-09-13] MEDS: Multivit/Ca/Min/Fe/FA 1 TAB TABLET PO SCH (08:01)
[2016-09-13] MEDS: Albumin 25% 25gram/100mL 25 GM/100 ML IV.SOLN IVPB SCH (08:01)
[2016-09-13] MEDS: Aspirin Enteric Coated 81 MG Tablet PO SCH (08:01)
[2016-09-13] MEDS: Sucralfate 1 GM TABLET PO SCH ×4 (08:01→23:21)
[2016-09-13] MEDS: Furosemide 40 MG/4 ML VIAL IVP SCH ×2 (08:01→17:20)
[2016-09-13] MEDS: Loratadine 10 MG TABLET PO SCH (08:03)
--- NOTE | 2016-09-13 10:13 | Internal Med Progress Note ---
Date of Encounter: 09/13/16 Time of Encounter: 09:25 - Assessment and plan (1) DARON (acute kidney injury) Current Visit: Yes Status: Acute Assessment and plan: BUN remains elevated but creatinine is improving. On IV Lasix. Nephrology following. High risk for complications. (2) CKD (chronic kidney disease), stage III Current Visit: Yes Status: Chronic Assessment and plan: With acute kidney injury (3) CHF (congestive heart failure), NYHA class III Current Visit: No Status: Chronic Assessment and plan: Continue aspirin, carvedilol and Zocor. On IV Lasix. Qualifiers: Congestive heart failure type: systolic Congestive heart failure chronicity : chronic Qualified Code(s): I50.22 - Chronic systolic (congestive) heart failure (4) COPD (chronic obstructive pulmonary disease) Current Visit: No Status: Chronic Assessment and plan: Continue bronchodilator nebs as needed. Qualifiers: COPD type: emphysema Emphysema type: centrilobular Qualified Code(s): J43.2 - Centrilobular emphysema (5) Elevated troponin Current Visit: No Status: Chronic Assessment and plan: Likely from demand ischemia and kidney injury. (6) History of atrial fibrillation Current Visit: No Status: Chronic - Subjective Interval history: Patient complains of some back pain but otherwise doing well. Denies any new complaints at this time. Continues to have good urine output. No nausea or vomiting. Does have cough with mucoid sputum - Constitutional Vitals: Temp Pulse Resp BP Pulse Ox 97.8 F 69 18 119/77 97 09/13/16 04:30 09/13/16 06:56 09/13/16 07:51 09/13/16 06:56 09/13/16 07:51 General appearance: Present: cooperative, mild distress, A&O X 3, pleasant, answers questions appropriately - Respiratory Respiratory exam: Present: CTAB. Absent: accessory muscle use, rales, rhonchi, wheezes - Cardiovascular Cardiovascular exam: Present: RRR, +S1, +S2. Absent: diastolic murmur, gallop, rubs, systolic murmur - GI/Abdominal GI/Abdominal exam: Present: normal bowel sounds, soft, no peritoneal signs. Absent: distended, tenderness - Extremities Exam Extremities exam: Present: pedal edema (Bilateral lower extremity), warm, radial pulses palpable and symetrical. Absent: calf tenderness, cyanotic Internal Medicine: Result - Labs CBC & Chem 7: 09/13/16 06:37 09/13/16 06:37 Labs: Short CBC 09/13/16 Range/Units 06:37 WBC 4.2 L (4.3-11.1) K/mcL Hgb 9.2 L (12.9-16.9) g/dL Hct 31.2 L (37.5-50.1) % Plt Count 103 L (140-400) K/mcL Neutrophils # 2.9 (1.6-8.9) K/mcL BMP 09/13/16 06:37 Sodium 146 H Potassium 4.2 Chloride 104 Carbon Dioxide 30 H BUN 127 H Creatinine 3.32 H Glucose 96 Calcium 9.5 - ABG Interpretation ABG results: PT/INR, D-dimer PT 13.1 Seconds (9.4-12.1) H 09/09/16 13:21 - VTE Documentation of Mechanical Device: Graduated compression elastic hosiery Consult Discharge Plan - Plan Referrals: NO,PCP [Primary Care Provider] - (Patient will most likely go to ECF) - Attending Attestation This document has been at least partially created by [employer] recognition technology by Dr. Stinson. Errors in grammar, wording or other phrases may exist. If errors are found after the documentation is signed, they will be addressed individually in the addendum section of this document when appropriate.
--- NOTE | 2016-09-13 11:08 | Cardiology Progress Note ---
Date of Encounter: 09/13/16 Time of Encounter: 11:06 Assessment and Plan (1) Acute exacerbation of CHF (congestive heart failure) Current Visit: No Status: Acute Pt presented with worsening dyspnea and LE edema. Known EF on echo 12/2014 was 35 %, then on MUGA 06/2015 EF was 22.6%. Current Echo EF 25-30%. BNP 2601. CXR mild bibasilar atelectasis and pulmonary congestion. [facility] 2010 showed minimal CAD and at that time EF was <20%. Known NICMP with variations in EF from 20-35%. Agree with IV diuresis--60mg IV BID. Cumulative I/O -1975mL. Still with significant LE edema. Suspect volume overload multifactoral in setting of DARON on CKD and CHF. Albumin infusing IV, although albumin level was normal. Ordered per nephrology. Will discuss stopping this. Recommend Strict I/Os, Na and fluid restriction, daily weights. Lower extremities wrapped and elevated. Will continue to follow. Qualifiers: Congestive heart failure type: combined Qualified Code(s): I50.43 - Acute on chronic combined systolic (congestive) and diastolic (congestive) heart failure (2) Elevated troponin Current Visit: Yes Status: Acute Troponins 0.11, 0.12, 0.12 in setting of CHF exacerbation and DARON on CKD. Suspect demand ischemia, nondiagnostic for ACS. Medical management. Known NICMP. Minimal CAD on [facility] 2010. Pt denies chest pain. (3) Acute renal failure superimposed on stage 3 chronic kidney disease Current Visit: No Status: Acute Management per nephrology. Creatinine milldly improved, 3.32 today. (4) A-fib Current Visit: No Status: Chronic Known hx of A-Fib. Continue BB. Previously anticoagulated on Coumadin that was stopped for GI bleed. Continue ASA only. Qualifiers: Atrial fibrillation type: paroxysmal Qualified Code(s): I48.0 - Paroxysmal atrial fibrillation (5) Nonischemic cardiomyopathy Current Visit: No Status: Chronic EF 25-30% on echo. ICD in place. CHF exacerbation, diuresing as above plan. Continue BB. No ANISHA-i due to renal function. Discussion w patient/family: The assessment and plan as outlined above was discussed with the patient and/or family members who expressed understanding and agreement. All questions were answered. Thank you for involving us in the care of your patient. Please call with any questions. I will discuss all the above with Dr. Gil and make changes as necessary. Subjective Principal diagnosis: CHF, DARON Interval history: Pt denies any acute cardiac complaints. Denies significant shortness of breath. Still with significant lower extremity edema. I/O yesterday negative -505m, today negative -750mL so far. Cumulative I/O negative -1975mL. Objective Vital Signs, Last 4 Hours Resp Pulse Ox 09/13/16 07:51 18 97 Vital Signs Temp Pulse Resp BP Pulse Ox 09/13/16 11:03 97.3 F L 75 17 115/75 100 09/13/16 07:51 18 97 09/13/16 06:56 69 17 119/77 99 09/13/16 04:30 97.8 F 78 16 104/62 100 09/13/16 00:46 97.6 F 72 20 106/64 96 09/12/16 21:56 99 09/12/16 21:54 18 99 09/12/16 20:37 97.7 F 110 16 111/77 100 09/12/16 16:15 98.0 F 88 16 127/86 97 09/12/16 11:58 98.3 F 106 19 130/86 95 Intake and Output 09/12/16 09/13/16 09/13/16 23:59 07:59 15:59 Intake Total 900 / 900 0 / 0 Output Total 750 / 750 750 / 750 300 / 300 Balance 150 / 150 -750 / -750 -300 / -300 Intake: IV Fluids 100 / 100 Flexbumin 25 gm In 100 ml 100 / 100 @ 60 mls/hr IVPB BIDDIURETIC BHAVYA Rx#: [id number] Oral 800 / 800 0 / 0 Output: Catheter 750 / 750 750 / 750 300 / 300 Other: Meal filled water pitcher Weight 101.3 kg Blood Glucose* 118 94 153 Patient Weight 09/13/16 23:59 Weight 101.3 kg General: Conversant, No Apparent Distress HEENT: Atraumatic, Normocephaly, Mucus Membranes Moist Neck: No JVD, Normal carotid pulses Cardiac: Reg Rate and Rhythm, Normal S1 and S2, No Murmur Lungs: Other (diminished) Neuro: Alert and responsive, No focal deficits noted Abdomen: Soft, Non-Tender Skin: No rashes noted on visualized skin Musculoskeletal: No Chest Wall Tenderness Extremities: Other (3+ BLE edema, lower extremities wrapped.) Results 09/13/16 06:37 09/13/16 06:37 Lab Results 09/13/16 09/13/16 06:37 06:37 WBC 4.2 L Hgb 9.2 L Hct 31.2 L Plt Count 103 L Sodium 146 H Potassium 4.2 Chloride 104 Carbon Dioxide 30 H BUN 127 H Creatinine 3.32 H Glucose 96 Calcium 9.5 Short CBC 09/13/16 Range/Units 06:37 WBC 4.2 L (4.3-11.1) K/mcL Hgb 9.2 L (12.9-16.9) g/dL Hct 31.2 L (37.5-50.1) % Plt Count 103 L (140-400) K/mcL Neutrophils # 2.9 (1.6-8.9) K/mcL BMP 09/13/16 Range/Units 06:37 Sodium 146 H (136-145) mEq/L Potassium 4.2 (3.5-4.5) mEq/L Chloride 104 (98-109) mEq/L Carbon Dioxide 30 H (19-29) mEq/L BUN 127 H (8-26) mg/dL Creatinine 3.32 H (0.72-1.25) mg/dL Glucose 96 (70-99) mg/dL Calcium 9.5 (8.6-10.8) mg/dL Active Medications Acetaminophen (Tylenol) 650 mg PO Q6HR PRN PRN Reason: Mild Pain (1-3) Stop: 03/11/17 18:08 Last Admin: 09/12/16 21:07 Dose: 650 mg Albuterol/Ipratropium (Duoneb) 3 ml IH [id number] PRN; Protocol PRN Reason: Shortness Of Breath/Wheezing Stop: 03/11/17 22:01 Last Admin: 09/13/16 07:50 Dose: 3 ml Artificial Tears (Akwa Tears) 1 drop OP TID PRN; Protocol PRN Reason: Dry Eyes Stop: 03/11/17 19:14 Aspirin (Aspirin Ec) 81 mg PO DAILY [facility] Stop: 03/12/17 09:01 Last Admin: 09/13/16 08:01 Dose: 81 mg Budesonide/Formoterol Fumarate (Symbicort) 2 puff IH BIDR [facility] Stop: 03/11/17 22:01 Last Admin: 09/13/16 07:51 Dose: 2 puff Carvedilol (Coreg) 3.125 mg PO BID [facility] Stop: 03/11/17 21:01 Last Admin: 09/13/16 08:01 Dose: 3.125 mg Dextrose/Water (Dextrose 50% (Syg)) 25 ml IVP AD PRN PRN Reason: Hypoglycemia Stop: 03/11/17 19:00 Furosemide (Lasix) 60 mg IVP BIDDIURETIC [facility] Stop: 03/12/17 08:01 Last Admin: 09/13/16 08:01 Dose: 60 mg Glucagon (Glucagen) 1 mg IM ONCE PRN PRN Reason: Hypoglycemia Stop: 03/11/17 19:00 Glucose (Gluctose) 15 gm PO ONCE PRN PRN Reason: Hypoglycemia Stop: 03/11/17 19:00 Glucose (Gluctose) 30 gm PO ONCE PRN PRN Reason: Hypoglycemia Stop: 03/11/17 19:00 Heparin Sodium (Porcine) (Heparin) 5,000 unit SQ Q12HCO [facility] Stop: 03/12/17 07:01 Last Admin: 09/13/16 08:00 Dose: 5,000 unit Dextrose (Dextrose 5%) 1,000 mls @ 100 mls/hr IV CONT PRN PRN Reason: HYPOGLYCEMIA Stop: 03/11/17 19:00 Albumin Human (Flexbumin) 25 gm in 100 mls @ 60 mls/hr IVPB BIDDIURETIC [facility] Stop: 03/12/17 17:01 Last Admin: 09/13/16 08:01 Dose: 60 mls/hr Insulin Human Lispro (Humalog) 0 units SQ HS BHAVYA PRN Reason: Protocol Stop: 03/11/17 21:01 Last Admin: 09/12/16 22:00 Dose: Not Given Insulin Human Lispro (Humalog) 0 units SQ TIDAC BHAVYA PRN Reason: Protocol Stop: 03/12/17 07:31 Last Admin: 09/13/16 08:00 Dose: Not Given Loratadine (Claritin) 10 mg PO DAILY BHAVYA PRN Reason: Protocol Stop: 03/12/17 09:01 Last Admin: 09/13/16 08:03 Dose: 10 mg Multivitamins/Calcium (Thera M Plus) 1 tab PO DAILY [facility] Stop: 03/12/17 09:01 Last Admin: 09/13/16 08:01 Dose: 1 tab Naloxone HCl (Narcan) 0.4 mg IVP Q2MIN PRN PRN Reason: Opioid Reversal Stop: 03/11/17 18:08 Omeprazole (Prilosec) 20 mg PO BID BHAVYA PRN Reason: Protocol Stop: 03/11/17 21:01 Last Admin: 09/13/16 08:01 Dose: 20 mg Ondansetron HCl (Zofran) 4 mg IVP Q8HR PRN PRN Reason: Nausea And Vomiting Stop: 03/11/17 18:08 Simvastatin (Zocor) 20 mg PO HS BHAVYA PRN Reason: Protocol Stop: 03/11/17 21:01 Last Admin: 09/12/16 20:53 Dose: 20 mg Sodium Chloride (Waucoma Nasal [place]) 2 spray NS Q2H PRN PRN Reason: Congestion Stop: 03/13/17 14:56 Sucralfate (Carafate) 1 gm PO QIDAC [facility] Stop: 03/11/17 22:01 Last Admin: 09/13/16 08:01 Dose: 1 gm - EKG Interpretation EKG results cardiology: other (12 hour tele AVG HR 71, ventricularly paced, PAF) - VTE Documentation of Mechanical Device: Graduated compression elastic hosiery Consult Discharge Plan - Plan Referrals: NO,PCP [Primary Care Provider] - (Patient will most likely go to ECF)
--- NOTE | 2016-09-13 11:40 | Nephrology Progress Note ---
Date of Encounter: 09/13/16 Time of Encounter: 10:35 - Assessment and Plan (1) DARON (acute kidney injury) Current Visit: Yes Status: Acute SCr slightly better at 3.32, GFR 22. Pt aware of potential need for [employer] if renal function worsens and he is very open to this if absolutely needed but not at this time. BUN elevated at 127, will stop albumin at this point UOP acceptable at 1625 Continue to avoid nephrotoxins if possible (2) CKD (chronic kidney disease), stage III Current Visit: Yes Status: Chronic Baseline GFR typically 30-40s (3) Acute exacerbation of CHF (congestive heart failure) Current Visit: Yes Status: Acute Per discussions with cardio, will continue iv lasix for now Will also continue LE vwrapping as pt does have a component of lymphedema Qualifiers: Congestive heart failure type: systolic Qualified Code(s): I50.23 - Acute on chronic systolic (congestive) heart failure Subjective Principal diagnosis: CHF, DARON Interval history: Pt seen and examined reports LE edema better with wrapping. SOB slightly better. Objective - Vital Signs Vital signs: Vital Signs Temp Pulse Resp BP Pulse Ox 09/13/16 11:03 97.3 F L 75 17 115/75 100 09/13/16 07:51 18 97 09/13/16 06:56 69 17 119/77 99 09/13/16 04:30 97.8 F 78 16 104/62 100 09/13/16 00:46 97.6 F 72 20 106/64 96 09/12/16 21:56 99 09/12/16 21:54 18 99 09/12/16 20:37 97.7 F 110 16 111/77 100 09/12/16 16:15 98.0 F 88 16 127/86 97 09/12/16 11:58 98.3 F 106 19 130/86 95 Intake and Output 09/12/16 09/13/16 09/13/16 23:59 07:59 15:59 Intake Total 900 / 900 0 / 0 Output Total 750 / 750 750 / 750 300 / 300 Balance 150 / 150 -750 / -750 -300 / -300 Intake: IV Fluids 100 / 100 Flexbumin 25 gm In 100 ml 100 / 100 @ 60 mls/hr IVPB BIDDIURETIC BHAVYA Rx#: [id number] Oral 800 / 800 0 / 0 Output: Catheter 750 / 750 750 / 750 300 / 300 Other: Meal filled water pitcher Weight 101.3 kg Blood Glucose* 118 94 153 Patient Weight 09/13/16 23:59 Weight 101.3 kg EENT: Present: ATNC, mucous membranes moist Neck: Present: no JVD, supple Additional Comments: good areation with slightly decreased BS bases bilat Cardiology: Present: edema (LE bilat with wrapping), normal S1, normal S2 Gastrointestinal: Present: no tenderness, no guarding Integumentary: Present: warm and dry Neurologic: Present: no focal deficit Musculoskeletal: Present: no deformities Psychiatric: Present: mood/affect appropriate, cooperative - Lab 09/14/16 06:40 09/14/16 06:40 Most recent lab results Calcium 9.5 mg/dL (8.6-10.8) 09/13/16 06:37 Phosphorus 6.8 mg/dL (2.3-4.7) H 09/10/16 01:28 Magnesium 2.3 mg/dL (1.6-2.6) 09/10/16 01:28 Urine Creatinine 72 mg/dL 09/10/16 13:50 Urine Sodium 44.0 mEq/L 09/10/16 13:50 - VTE Documentation of Mechanical Device: Graduated compression elastic hosiery Consult Discharge Plan - Plan Referrals: NO,PCP [Primary Care Provider] - (Patient will follow up with ECF pcp)
[2016-09-13] MEDS ORDERED: D5% in Water 1,000 ML IVC SCH (11:45)
[2016-09-13] MEDS: Melatonin 3 MG TABLET PO SCH (23:22)
[2016-09-14] MEDS ORDERED: *HR* OxyCODONE Immed Rel 5 MG TABLET PO PRN ×2 (04:12→12:44)
[2016-09-14] MEDS ORDERED: Acetaminophen IV 1,000 MG/100 ML INFUS..BTL IVPB ONE (04:12)
[2016-09-14 06:55] LABS: Basophils % 0.6 %; Eosinophils # 0.1 K/mcL (0.0-0.6); Eosinophils % 2.5 %; Hematocrit 30.1 % (37.5-50.1); Hemoglobin 8.9 g/dL (12.9-16.9); Immature Granulocytes % 0.2 % (0-4); Lymphocytes # 0.7 K/mcL (0.6-4.6); Lymphocytes % 13.8 %; Mean Corpuscular HGB Conc 29.6 g/dL (31.6-35.5); Mean Corpuscular Hemoglobin 27.2 pg (28.0-33.3); Mean Platelet Volume 11.6 fL (9.4-12.4); Monocytes # 0.4 K/mcL (0.0-1.3); Monocytes % 8.3 %; Neutrophils # 3.9 K/mcL (1.6-8.9); Platelet Count 112 K/mcL (140-400); Red Blood Count 3.27 M/mcL (4.19-5.50); Red Cell Distribution Width 14.1 % (11.5-14.5); Segmented Neutrophils % 74.6 %
[2016-09-14 07:16] LABS: Calcium 9.4 mg/dL (8.6-10.8)
[2016-09-14] MEDS: Budesonide/Formoterol 160/4.5 MDI IH SCH ×2 (07:45→21:08)
[2016-09-14] MEDS: Furosemide 40 MG/4 ML VIAL IVP SCH ×2 (08:15→17:17)
[2016-09-14] MEDS: *HR* Heparin 5,000 UNIT/ML VIAL SQ SCH ×2 (08:16→20:24)
[2016-09-14] MEDS: Sucralfate 1 GM TABLET PO SCH ×4 (08:17→21:49)
[2016-09-14] MEDS: Multivit/Ca/Min/Fe/FA 1 TAB TABLET PO SCH (08:17)
[2016-09-14] MEDS: Loratadine 10 MG TABLET PO SCH (08:17)
[2016-09-14] MEDS: Aspirin Enteric Coated 81 MG Tablet PO SCH (08:17)
[2016-09-14] MEDS: Insulin LISPRO 300 UNITS/3 ML VIAL SQ SCH ×4 (08:18→21:49)
--- NOTE | 2016-09-14 10:44 | Cardiology Progress Note ---
Date of Encounter: 09/14/16 Time of Encounter: 09:00 Assessment and Plan (1) Acute exacerbation of CHF (congestive heart failure) Current Visit: Yes Status: Acute Longstanding history systolic dysfunction s/p BiV-ICD. Pt presented with worsening dyspnea and LE edema. Known EF on echo 12/2014 was 35 %, then on MUGA 06/2015 EF was 22.6%. Current Echo EF 25-30%. BNP 2601. CXR mild bibasilar atelectasis and pulmonary congestion. [facility] 2010 showed minimal CAD and at that time EF was <20%. Known NICMP with variations in EF from 20-35%. Continue IV diuresis for additional 24 hours--60mg IV BID. Cumulative I/O - 2675mL. Still with significant LE edema/dependent edema. SCr remains stable--3.25 today, GFR 22. Nephrology following. Suspect volume overload multifactoral in setting of DARON on CKD and CHF. Albumin d/c'ed yesterday Recommend Strict I/Os, Na and fluid restriction, daily weights. Lower extremities wrapped and elevated. Will continue to follow. Qualifiers: Congestive heart failure type: systolic Qualified Code(s): I50.23 - Acute on chronic systolic (congestive) heart failure (2) Elevated troponin Current Visit: Yes Status: Acute Troponins 0.11, 0.12, 0.12 in setting of CHF exacerbation and DARON on CKD. Suspect demand ischemia, nondiagnostic for ACS. Medical management. Known NICMP. Minimal CAD on [facility] 2010. Pt denies chest pain. (3) Acute renal failure superimposed on stage 3 chronic kidney disease Current Visit: No Status: Acute Management per nephrology. Creatinine milldly improved, 3.25 today. (4) Nonischemic cardiomyopathy Current Visit: No Status: Chronic EF 25-30% on echo. ICD in place. CHF exacerbation, diuresing as above plan. Continue BB. No ANISHA-i due to renal function. (5) Afib Current Visit: No Status: Acute Known history of atrial fibrillation. Rate controlled on betablocker. Hx of GI bleed on coumadin, recommend ASA only. Qualifiers: Atrial fibrillation type: chronic Qualified Code(s): I48.2 - Chronic atrial fibrillation Discussion w patient/family: The assessment and plan as outlined above was discussed with the patient and/or family members who expressed understanding and agreement. All questions were answered. Thank you for involving us in the care of your patient. Please call with any questions. The patient will be discussed and reviewed with Dr. Gil; changes to be made accordingly. Subjective Principal diagnosis: CHF, DARON Interval history: Seen and examined. Denies any events overnight. Observed clear yellow urine in gayle. 24 hour I&O: -1450 mL. Reports edema has improved, however remains significant. Objective Vital Signs, Last 4 Hours Temp Pulse Resp BP Pulse Ox 09/14/16 07:51 97.6 F 75 18 122/71 99 09/14/16 07:45 18 96 General: Conversant, No Apparent Distress Cardiac: Other (irregularly irregular) Lungs: Other (scattered rales ) Neuro: Alert and responsive Abdomen: Other (firm distended. ) Extremities: Other (significant BLE edema--wrapped/ dependent edema to sacrum, upper arms. ) Results 09/14/16 06:40 09/14/16 06:40 Lab Results 09/14/16 09/14/16 06:40 06:40 WBC 5.2 Hgb 8.9 L Hct 30.1 L Plt Count 112 L Sodium 145 Potassium 4.0 Chloride 104 Carbon Dioxide 31 H BUN 127 H Creatinine 3.25 H Glucose 90 Calcium 9.4 Active Medications Acetaminophen (Tylenol) 650 mg PO Q6HR PRN PRN Reason: Mild Pain (1-3) Stop: 03/11/17 18:08 Last Admin: 09/12/16 21:07 Dose: 650 mg Albuterol/Ipratropium (Duoneb) 3 ml IH [id number] PRN; Protocol PRN Reason: Shortness Of Breath/Wheezing Stop: 03/11/17 22:01 Last Admin: 09/13/16 15:59 Dose: 3 ml Artificial Tears ([place] Tears) 1 drop OP TID PRN; Protocol PRN Reason: Dry Eyes Stop: 03/11/17 19:14 Aspirin (Aspirin Ec) 81 mg PO DAILY [facility] Stop: 03/12/17 09:01 Last Admin: 09/14/16 08:17 Dose: 81 mg Budesonide/Formoterol Fumarate (Symbicort) 2 puff IH BIDR BHAVYA Stop: 03/11/17 22:01 Last Admin: 09/14/16 07:45 Dose: 2 puff Carvedilol (Coreg) 3.125 mg PO BID [facility] Stop: 03/11/17 21:01 Last Admin: 09/14/16 08:17 Dose: 3.125 mg Dextrose/Water (Dextrose 50% (Syg)) 25 ml IVP AD PRN PRN Reason: Hypoglycemia Stop: 03/11/17 19:00 Furosemide (Lasix) 60 mg IVP BIDDIURETIC BHAVYA Stop: 03/12/17 08:01 Last Admin: 09/14/16 08:15 Dose: 60 mg Heparin Sodium (Porcine) (Heparin) 5,000 unit SQ Q12HCO BHAVYA Stop: 03/12/17 07:01 Last Admin: 09/14/16 08:16 Dose: 5,000 unit Dextrose (Dextrose 5%) 1,000 mls @ 100 mls/hr IV CONT PRN PRN Reason: HYPOGLYCEMIA Stop: 03/11/17 19:00 Insulin Human Lispro (Humalog) 0 units SQ HS BHAVYA PRN Reason: Protocol Stop: 03/11/17 21:01 Last Admin: 09/13/16 21:46 Dose: Not Given Insulin Human Lispro (Humalog) 0 units SQ TIDAC BHAVYA PRN Reason: Protocol Stop: 03/12/17 07:31 Last Admin: 09/14/16 08:18 Dose: Not Given Loratadine (Claritin) 10 mg PO DAILY BHAVYA PRN Reason: Protocol Stop: 03/12/17 09:01 Last Admin: 09/14/16 08:17 Dose: 10 mg Melatonin (Melatonin) 3 mg PO HS [facility] Stop: 03/15/17 23:16 Last Admin: 09/13/16 23:22 Dose: 3 mg Multivitamins/Calcium (Thera M Plus) 1 tab PO DAILY [facility] Stop: 03/12/17 09:01 Last Admin: 09/14/16 08:17 Dose: 1 tab Naloxone HCl (Narcan) 0.4 mg IVP Q2MIN PRN PRN Reason: Opioid Reversal Stop: 03/11/17 18:08 Omeprazole (Prilosec) 20 mg PO BID BHAVYA PRN Reason: Protocol Stop: 03/11/17 21:01 Last Admin: 09/14/16 08:17 Dose: 20 mg Ondansetron HCl (Zofran) 4 mg IVP Q8HR PRN PRN Reason: Nausea And Vomiting Stop: 03/11/17 18:08 Oxycodone HCl (Roxicodone) 10 mg PO Q6HR PRN PRN Reason: Severe Pain Stop: 03/16/17 04:13 Last Admin: 09/14/16 04:36 Dose: 10 mg Simvastatin (Zocor) 20 mg PO HS BHAVYA PRN Reason: Protocol Stop: 03/11/17 21:01 Last Admin: 09/13/16 23:22 Dose: 20 mg Sodium Chloride ([place] Nasal Rachel) 2 spray NS Q2H PRN PRN Reason: Congestion Stop: 03/13/17 14:56 Sucralfate (Carafate) 1 gm PO QIDAC BHAVYA Stop: 03/11/17 22:01 Last Admin: 09/14/16 08:17 Dose: 1 gm - Imaging and Cardiology Echo: report reviewed Cardiac cath: report reviewed Other Results: 12 hour tele: avg HR=87 paced/afib. - EKG Interpretation EKG results cardiology: personally reviewed - VTE Documentation of Mechanical Device: Graduated compression elastic hosiery Consult Discharge Plan - Plan Referrals: NO,PCP [Primary Care Provider] - (Patient will follow up with ECF pcp)
--- NOTE | 2016-09-14 15:05 | Internal Med Progress Note ---
Date of Encounter: 09/14/16 Time of Encounter: 11:15 - Assessment and plan (1) DARON (acute kidney injury) Current Visit: Yes Status: Acute Assessment and plan: Creatinine continues to improve. BUN remained stable. Albumin has been stopped. Continue Lasix. If continues to improve, will transition to oral Lasix tomorrow. Nephrology following patient's care. Moderate risk for complications due to IV Lasix use (2) CKD (chronic kidney disease), stage III Current Visit: Yes Status: Chronic (3) CHF (congestive heart failure), NYHA class III Current Visit: No Status: Chronic Assessment and plan: Continues to improve. Patient will has having good urine output. Continue aspirin, carvedilol and Zocor. Qualifiers: Congestive heart failure type: systolic Congestive heart failure chronicity : chronic Qualified Code(s): I50.22 - Chronic systolic (congestive) heart failure (4) COPD (chronic obstructive pulmonary disease) Current Visit: No Status: Chronic Assessment and plan: Continue nebs when necessary. Continue O2 supplementation. Qualifiers: COPD type: emphysema Emphysema type: centrilobular Qualified Code(s): J43.2 - Centrilobular emphysema (5) Elevated troponin Current Visit: No Status: Chronic (6) History of atrial fibrillation Current Visit: No Status: Chronic Assessment and plan: Rate controlled - Subjective Interval history: Patient feels better today. Denies any chest pain. No significant shortness of breath. No nausea or vomiting. Continues to have good urine output. - Constitutional Vitals: Temp Pulse Resp BP Pulse Ox 98 F 94 18 138/78 97 09/14/16 12:01 09/14/16 12:01 09/14/16 12:01 09/14/16 12:01 09/14/16 12:01 General appearance: Present: cooperative, mild distress, A&O X 3, pleasant, answers questions appropriately - Neck Neck exam general surgery: Present: supple, trachea midline. Absent: lymphadenopathy - Respiratory Respiratory exam: Present: CTAB. Absent: accessory muscle use, rales, rhonchi, wheezes - Cardiovascular Cardiovascular exam: Present: RRR, +S1, +S2. Absent: diastolic murmur, gallop, rubs, systolic murmur - GI/Abdominal GI/Abdominal exam: Present: normal bowel sounds, soft, no peritoneal signs. Absent: distended, tenderness - Extremities Exam Extremities exam: Present: pedal edema, warm, radial pulses palpable and symetrical. Absent: calf tenderness, cyanotic Additional comments: Bilateral lower extremity is currently bandaged with Mark wrap/compression stockings. - Skin Skin exam: Present: dry, intact Internal Medicine: Result - Labs CBC & Chem 7: 09/14/16 06:40 09/14/16 06:40 Labs: Short CBC 09/14/16 Range/Units 06:40 WBC 5.2 (4.3-11.1) K/mcL Hgb 8.9 L (12.9-16.9) g/dL Hct 30.1 L (37.5-50.1) % Plt Count 112 L (140-400) K/mcL Neutrophils # 3.9 (1.6-8.9) K/mcL BMP 09/14/16 06:40 Sodium 145 Potassium 4.0 Chloride 104 Carbon Dioxide 31 H BUN 127 H Creatinine 3.25 H Glucose 90 Calcium 9.4 - ABG Interpretation ABG results: PT/INR, D-dimer PT 13.1 Seconds (9.4-12.1) H 09/09/16 13:21 - VTE Documentation of Mechanical Device: Graduated compression elastic hosiery Consult Discharge Plan - Plan Referrals: NO,PCP [Primary Care Provider] - (Patient will follow up with ECF pcp)
--- NOTE | 2016-09-14 17:42 | Nephrology Progress Note ---
Date of Encounter: 09/14/16 Time of Encounter: 11:45 - Assessment and Plan (1) DARON (acute kidney injury) Current Visit: Yes Status: Acute SCr improving at 3.25, GFR 22 after fee water given. BUN still elevated at 127 with no uremia off albumin. No acute need for [employer] WORK[employer] at this point. UOP acceptable Continue to avoid nephrotxins if possible (2) CKD (chronic kidney disease), stage III Current Visit: Yes Status: Chronic Baseline GFR typically 30-40s (3) Acute exacerbation of CHF (congestive heart failure) Current Visit: Yes Status: Acute Continue iv lasix per discussions with cardio, may change to po tomorrow if still improving Pt continues to respond well to LE wrapping for lymphedema Qualifiers: Congestive heart failure type: systolic Qualified Code(s): I50.23 - Acute on chronic systolic (congestive) heart failure Subjective Principal diagnosis: CHF, DARON Interval history: Pt seen and examined reports LE feels better with wrapping. SOB also improving Objective - Vital Signs Vital signs: Vital Signs Temp Pulse Resp BP Pulse Ox 09/14/16 16:00 97.9 F 84 105/66 96 09/14/16 12:01 98 F 94 18 138/78 97 09/14/16 07:51 97.6 F 75 18 122/71 99 09/14/16 07:45 18 96 09/14/16 05:09 97.7 F 90 16 111/72 95 09/13/16 23:47 98.0 F 84 16 117/67 96 09/13/16 22:54 18 98 09/13/16 20:55 98.0 F 89 16 124/76 95 Intake and Output 09/14/16 09/14/16 09/14/16 07:59 15:59 23:59 Intake Total 0 / 0 360 / 360 Balance 0 / 0 360 / 360 Intake: Oral 0 / 0 360 / 360 Other: Meal Breakfast Percent of Meal Consumed 60% Weight 103 kg Blood Glucose* 91 111 Patient Weight 09/14/16 23:59 Weight 103 kg - General Appearance General appearance: Present: chronically ill (NAD) EENT: Present: ATNC, mucous membranes moist Neck: Present: no JVD, supple Additional Comments: good areation with slightly decreased BS bases bilat Cardiology: Present: edema (decreasing LE bilat with wrapping), normal S1, normal S2 Gastrointestinal: Present: no tenderness, no guarding Integumentary: Present: warm and dry Neurologic: Present: no focal deficit Musculoskeletal: Present: no deformities Psychiatric: Present: mood/affect appropriate, cooperative - Lab 09/14/16 06:40 09/14/16 06:40 Most recent lab results Calcium 9.4 mg/dL (8.6-10.8) 09/14/16 06:40 Phosphorus 6.8 mg/dL (2.3-4.7) H 09/10/16 01:28 Magnesium 2.3 mg/dL (1.6-2.6) 09/10/16 01:28 Urine Creatinine 72 mg/dL 09/10/16 13:50 Urine Sodium 44.0 mEq/L 09/10/16 13:50 - VTE Documentation of Mechanical Device: Graduated compression elastic hosiery Consult Discharge Plan - Plan Referrals: NO,PCP [Primary Care Provider] - (Patient will follow up with ECF pcp)
[2016-09-14] MEDS: Melatonin 3 MG TABLET PO SCH (20:25)
[2016-09-15] MEDS: *HR* Heparin 5,000 UNIT/ML VIAL SQ SCH ×2 (06:22→21:06)
[2016-09-15 06:37] LABS: Calcium 9.8 mg/dL (8.6-10.8); Potassium 4.4 mEq/L (3.5-4.5)
[2016-09-15] MEDS: Insulin LISPRO 300 UNITS/3 ML VIAL SQ SCH ×4 (08:42→21:07)
--- NOTE | 2016-09-15 08:47 | Cardiology Consult Note ---
Date of Encounter: 09/15/16 Assessment and Plan (1) Acute exacerbation of CHF (congestive heart failure) Current Visit: Yes Status: Acute Longstanding history systolic dysfunction s/p BiV-ICD. Pt presented with worsening dyspnea and LE edema. Known EF on echo 12/2014 was 35 %, then on MUGA 06/2015 EF was 22.6%. Current Echo EF 25-30%. BNP 2601. CXR mild bibasilar atelectasis and pulmonary congestion. [facility] 2010 showed minimal CAD and at that time EF was <20%. Known NICMP with variations in EF from 20-35%. Mild SCr bump today, IV lasix chagned. Cumulative I/O -2455mL. Still with significant LE edema/dependent edema. Suspect volume overload multifactoral in setting of DARON on CKD and CHF. Recommend Strict I/Os, Na and fluid restriction, daily weights. Lower extremities wrapped and elevated. No further inpatient Cardiology recommendations, follow-up with Dr. Gil in 1- 2 weeks--message sent via [employer]. . Qualifiers: Congestive heart failure type: systolic Qualified Code(s): I50.23 - Acute on chronic systolic (congestive) heart failure (2) Elevated troponin Current Visit: Yes Status: Acute Troponins 0.11, 0.12, 0.12 in setting of CHF exacerbation and DARON on CKD. Suspect demand ischemia, nondiagnostic for ACS. Medical management. Known NICMP. Minimal CAD on [facility] 2010. Pt denies chest pain. (3) Acute renal failure superimposed on stage 3 chronic kidney disease Current Visit: No Status: Acute Management per nephrology. Creatinine milldly improved, 3.25 today. (4) Nonischemic cardiomyopathy Current Visit: No Status: Chronic EF 25-30% on echo. ICD in place. CHF exacerbation, diuresing as above plan. Continue BB. No ANISHA-i due to renal function. (5) Afib Current Visit: No Status: Acute Known history of atrial fibrillation. Rate controlled on betablocker. Hx of GI bleed on coumadin, recommend ASA only. Qualifiers: Atrial fibrillation type: chronic Qualified Code(s): I48.2 - Chronic atrial fibrillation Discussion w patient/family: The assessment and plan as outlined above was discussed with the patient and/or family members who expressed understanding and agreement. All questions were answered. Thank you for involving us in the care of your patient. Please call with any questions. The patient will be discussed and reviewed with Dr. Gil; changes to be made accordingly. History of Present Illness History of present illness: Mr. Deal is a 85 year old male Past Med Surg Social Fam HX - Past Medical History Medical history: atrial fibrillation, cardiomyopathy, CHF, diabetes, hyperlipidemia, hypertension, renal disease Psychiatric history: no psych history - Past Surgical History Surgical History: pacemaker/AICD, other - Social History Smoking Status: Former smoker Smokeless Tobacco Status: No Alcohol use: none Drug use: none - Family History Mother Living Status: Hx Family Cardiac Disorders: Yes Hx Family Cancer: Yes ("female cancer") Father Living Status: Hx Family Cancer: Yes (lung cancer) Sister Adopted: No Living Status: Hx Family Cancer: Yes (1) "female cancer" 2) breast cancer) Medications and Allergies Aspirin Enteric Coated [Aspirin EC] 81 mg PO DAILY 03/12/16 [History] Carvedilol 3.125 mg PO BID 03/12/16 [History] Insulin LISPRO [Humalog] 2 - 12 unit SQ AD 03/12/16 [History] Ipratropium/Albuterol Neb [Duoneb] 3 ml IH Q6H 03/12/16 [History] Multivitamin [One Daily Essential] 1 each PO DAILY 03/12/16 [History] Ondansetron HCl [Zofran] 4 mg PO Q6H PRN 03/12/16 [History] Simvastatin [Zocor] 20 mg PO HS 03/12/16 [History] Sucralfate [Carafate] 1 gm PO QIDAC 30 Days 03/15/16 [Rx] Darbepoetin [Aranesp] 100 mcg SQ QMONTH 09/09/16 [History] Fluticasone/Salmeterol [Advair 500-50 Diskus] 1 puff IH BID 09/09/16 [History] Furosemide [Lasix] 80 mg PO BID 09/09/16 [History] Guaifenesin [Diabetic Tussin Ex] 100 mg PO Q6H PRN 09/09/16 [History] Loratadine [Allergy Relief] 10 mg PO DAILY 09/09/16 [History] Omeprazole [PriLOSEC] 20 mg PO BID 09/09/16 [History] Polyvinyl Alcohol [Artificial Tears] 1 drop OP TID PRN 09/09/16 [History] Sodium Chloride/Aloe Vera [[place] Saline Nasal Gel [place]] 1 spr NS TID 09/09/16 [ History] Allergies No Known Allergies Allergy (Verified 08/12/15 10:35) All Systems Review: A 10-system review of systems was performed and is negative for pertinent findings except as documented above in the HPI. Physical Examination Vital Signs, Last 4 Hours Temp Pulse Resp BP Pulse Ox 09/15/16 07:37 97.3 F L 83 17 117/85 99 Results 09/14/16 06:40 09/15/16 05:22 Lab Results 09/15/16 05:22 Sodium 146 H Potassium 4.4 Chloride 103 Carbon Dioxide 29 BUN 138 H Creatinine 3.81 H Glucose 95 Calcium 9.8 Consult Discharge Plan - Plan Referrals: NO,PCP [Primary Care Provider] - (Patient will follow up with ECF pcp)
[2016-09-15] MEDS: Aspirin Enteric Coated 81 MG Tablet PO SCH (08:49)
[2016-09-15] MEDS: Loratadine 10 MG TABLET PO SCH (08:49)
[2016-09-15] MEDS: Multivit/Ca/Min/Fe/FA 1 TAB TABLET PO SCH (08:49)
[2016-09-15] MEDS: Sucralfate 1 GM TABLET PO SCH ×4 (08:49→21:06)
--- NOTE | 2016-09-15 08:53 | Cardiology Progress Note ---
Date of Encounter: 09/15/16 Time of Encounter: 08:30 Assessment and Plan (1) Acute exacerbation of CHF (congestive heart failure) Current Visit: Yes Status: Acute Longstanding history systolic dysfunction s/p BiV-ICD. Pt presented with worsening dyspnea and LE edema. Known EF on echo 12/2014 was 35 %, then on MUGA 06/2015 EF was 22.6%. Current Echo EF 25-30%. BNP 2601. CXR mild bibasilar atelectasis and pulmonary congestion. [facility] 2010 showed minimal CAD and at that time EF was <20%. Known NICMP with variations in EF from 20-35%. Mild bump in SCr. Cumulative I/O -2455mL. Still with significant LE edema/ dependent edema. Suspect volume overload multifactoral in setting of DARON on CKD and CHF. Albumin d/c'ed yesterday Recommend Strict I/Os, Na and fluid restriction, daily weights. Lower extremities wrapped and elevated. No further inpatient recommendations; Cardiology will sign-off. Qualifiers: Congestive heart failure type: systolic Qualified Code(s): I50.23 - Acute on chronic systolic (congestive) heart failure (2) Elevated troponin Current Visit: Yes Status: Acute Troponins 0.11, 0.12, 0.12 in setting of CHF exacerbation and DARON on CKD. Suspect demand ischemia, nondiagnostic for ACS. Medical management. Known NICMP. Minimal CAD on [facility] 2010. Pt denies chest pain. (3) Acute renal failure superimposed on stage 3 chronic kidney disease Current Visit: Yes Status: Acute Management per nephrology. (4) Nonischemic cardiomyopathy Current Visit: No Status: Chronic EF 25-30% on echo. ICD in place. CHF exacerbation, diuresing as above plan. Continue BB. No ANISHA-i due to renal function. (5) Afib Current Visit: No Status: Acute Known history of atrial fibrillation. Rate controlled on betablocker. Hx of GI bleed on coumadin, recommend ASA on Qualifiers: Atrial fibrillation type: chronic Qualified Code(s): I48.2 - Chronic atrial fibrillation Discussion w patient/family: The assessment and plan as outlined above was discussed with the patient and/or family members who expressed understanding and agreement. All questions were answered. Thank you for involving us in the care of your patient. Please call with any questions. The patient was discussed and reviewed with Dr. Gil; Cardiology will sign-off , please call with questions. Subjective Principal diagnosis: CHF, DARON Interval history: Seen and examined. Denies any events overnight. He states he feels better today. Observed clear yellow urine in gayle. Objective Vital Signs, Last 4 Hours Temp Pulse Resp BP Pulse Ox 09/15/16 07:37 97.3 F L 83 17 117/85 99 General: Conversant HEENT: Atraumatic, Normocephaly Cardiac: Other (irregularly irregular) Lungs: Other (Scattered rales) Neuro: Alert and responsive Extremities: Other (significant BLE edema/sacral/dependent edema) Results 09/14/16 06:40 09/15/16 05:22 Lab Results 09/15/16 05:22 Sodium 146 H Potassium 4.4 Chloride 103 Carbon Dioxide 29 BUN 138 H Creatinine 3.81 H Glucose 95 Calcium 9.8 - Imaging and Cardiology Echo: report reviewed - EKG Interpretation EKG results cardiology: personally reviewed - VTE Documentation of Mechanical Device: Graduated compression elastic hosiery Consult Discharge Plan - Plan Referrals: NO,PCP [Primary Care Provider] - (Patient will follow up with ECF pcp)
[2016-09-15] MEDS: Budesonide/Formoterol 160/4.5 MDI IH SCH ×2 (10:21→23:28)
--- NOTE | 2016-09-15 13:57 | Internal Med Progress Note ---
Date of Encounter: 09/15/16 Time of Encounter: 11:45 - Assessment and plan (1) DARON (acute kidney injury) Current Visit: Yes Status: Acute Assessment and plan: BUN and creatinine were yesterday. Urine output has also decreased. Discussed with nephrology. For now, recommend monitoring and if condition worsens patient will need dialysis. High risk for complications. (2) CKD (chronic kidney disease), stage III Current Visit: Yes Status: Chronic Assessment and plan: Progressive. (3) CHF (congestive heart failure), NYHA class III Current Visit: No Status: Chronic Assessment and plan: Clinically improving. Patient has adequate dialysis. However his urine output has decreased since yesterday. Lasix has been changed to oral. We will follow cardiology and nephrology recommendations. Qualifiers: Congestive heart failure type: systolic Congestive heart failure chronicity : chronic Qualified Code(s): I50.22 - Chronic systolic (congestive) heart failure (4) COPD (chronic obstructive pulmonary disease) Current Visit: No Status: Chronic Assessment and plan: No acute exacerbation. Continue nebs when necessary Qualifiers: COPD type: emphysema Emphysema type: centrilobular Qualified Code(s): J43.2 - Centrilobular emphysema (5) Elevated troponin Current Visit: No Status: Chronic (6) History of atrial fibrillation Current Visit: No Status: Chronic Assessment and plan: Patient in normal sinus rhythm - Subjective Interval history: Patient is doing well. Denies any new complaints. Continues to have chronic back pain. Otherwise no shortness of breath or chest pain. He has had decrease in his urine output. - Constitutional Vitals: Temp Pulse Resp BP Pulse Ox 98.1 F 76 18 113/64 93 L 09/15/16 11:17 09/15/16 11:17 09/15/16 11:17 09/15/16 11:17 09/15/16 11:17 General appearance: Present: cooperative, mild distress, A&O X 3, pleasant, answers questions appropriately - Respiratory Respiratory exam: Present: CTAB. Absent: accessory muscle use, rales, rhonchi, wheezes - Cardiovascular Cardiovascular exam: Present: RRR, +S1, +S2. Absent: diastolic murmur, gallop, rubs, systolic murmur - GI/Abdominal GI/Abdominal exam: Present: normal bowel sounds, soft, no peritoneal signs. Absent: distended, tenderness - Extremities Exam Extremities exam: Present: pedal edema, warm, radial pulses palpable and symetrical. Absent: calf tenderness, cyanotic - Neurological Exam Neurological exam: Present: alert, oriented X3, no focal deficits, strengths equal and symetr throughout. Absent: facial droop, speech deficit - Skin Skin exam: Present: dry, intact Internal Medicine: Result - Labs CBC & Chem 7: 09/14/16 06:40 09/15/16 05:22 Labs: BMP 09/15/16 05:22 Sodium 146 H Potassium 4.4 Chloride 103 Carbon Dioxide 29 BUN 138 H Creatinine 3.81 H Glucose 95 Calcium 9.8 - ABG Interpretation ABG results: PT/INR, D-dimer PT 13.1 Seconds (9.4-12.1) H 09/09/16 13:21 - VTE Documentation of Mechanical Device: Graduated compression elastic hosiery Consult Discharge Plan - Plan Referrals: NO,PCP [Primary Care Provider] - (Patient will follow up with ECF pcp) - Attending Attestation This document has been at least partially created by [email or web address] recognition technology by Dr. Stinson. Errors in grammar, wording or other phrases may exist. If errors are found after the documentation is signed, they will be addressed individually in the addendum section of this document when appropriate.
--- NOTE | 2016-09-15 16:40 | Nephrology Progress Note ---
Date of Encounter: 09/15/16 Time of Encounter: 16:38 - Assessment and Plan (1) Acute renal failure superimposed on stage 3 chronic kidney disease Current Visit: Yes Status: Acute Creatinine with a slight increase today. Agree with changing lasix to oral and monitoring creatinine. Avoid nephrotoxins if possible. (2) CHF (congestive heart failure) Current Visit: Yes Status: Acute Improving edema. Continue with furosemide. Qualifiers: Qualified Code(s): I50.23 - Acute on chronic systolic (congestive) heart failure Subjective Principal diagnosis: CHF, DARON Interval history: Patient seen and evaluated. He has no new complaints. His edema is improving. He is feeling slightly better. He is eager to be able to ambulate. Objective - Vital Signs Vital signs: Vital Signs Temp Pulse Resp BP Pulse Ox 09/15/16 16:15 97.4 F L 91 20 122/78 98 09/15/16 11:17 98.1 F 76 18 113/64 93 L 09/15/16 09:00 99 09/15/16 07:37 97.3 F L 83 17 117/85 99 09/15/16 04:03 97.3 F L 93 20 95/63 95 09/15/16 01:05 97.8 F 82 20 115/67 95 09/15/16 01:00 95 09/14/16 21:10 20 90 L 09/14/16 20:51 97.9 F 97 20 105/65 93 L Intake and Output 09/15/16 09/15/16 09/15/16 07:59 15:59 23:59 Intake Total 60 / 60 250 / 250 50 / 50 Output Total 200 / 200 0 / 0 Balance -140 / -140 250 / 250 50 / 50 Intake: Oral 60 / 60 250 / 250 50 / 50 Output: Urine 0 / 0 Catheter 200 / 200 Other: Meal Breakfast Percent of Meal Consumed 70% Weight 101.3 kg Blood Glucose* 96 158 184 Patient Weight 09/15/16 23:59 Weight 101.3 kg - General Appearance General appearance: Present: well-developed, well-nourished EENT: Present: ATNC Neck: Present: supple Respiratory: Present: clear ( ) Cardiology: Present: regular rate, regular rhythm Additional Comments: biltateral lower extremities are wrapped in ANISHA wrap. There appears to be slight edema 1+ Gastrointestinal: Present: normoactive bowel sounds Integumentary: Present: warm and dry Neurologic: Present: alert and oriented x3 Musculoskeletal: Present: no cyanosis Psychiatric: Present: mood/affect appropriate - Lab 09/14/16 06:40 09/15/16 05:22 Most recent lab results Calcium 9.8 mg/dL (8.6-10.8) 09/15/16 05:22 Phosphorus 6.8 mg/dL (2.3-4.7) H 09/10/16 01:28 Magnesium 2.3 mg/dL (1.6-2.6) 09/10/16 01:28 Urine Creatinine 72 mg/dL 09/10/16 13:50 Urine Sodium 44.0 mEq/L 09/10/16 13:50 - VTE Documentation of Mechanical Device: Graduated compression elastic hosiery Consult Discharge Plan - Plan Referrals: NO,PCP [Primary Care Provider] - (Patient will follow up with ECF pcp)
[2016-09-15] MEDS: Melatonin 3 MG TABLET PO SCH (21:06)
[2016-09-15] MEDS: Acetaminophen 325 MG TABLET PO PRN (21:07)
[2016-09-16 06:30] LABS: Calcium 9.7 mg/dL (8.6-10.8); Potassium 4.2 mEq/L (3.5-4.5)
[2016-09-16] MEDS: Sucralfate 1 GM TABLET PO SCH ×4 (06:58→21:10)
[2016-09-16] MEDS: *HR* Heparin 5,000 UNIT/ML VIAL SQ SCH ×2 (06:58→18:50)
[2016-09-16] MEDS: Budesonide/Formoterol 160/4.5 MDI IH SCH ×2 (07:57→20:56)
[2016-09-16] MEDS: Insulin LISPRO 300 UNITS/3 ML VIAL SQ SCH ×4 (08:16→20:56)
[2016-09-16] MEDS: Multivit/Ca/Min/Fe/FA 1 TAB TABLET PO SCH (09:07)
[2016-09-16] MEDS: Aspirin Enteric Coated 81 MG Tablet PO SCH (09:08)
[2016-09-16] MEDS: Loratadine 10 MG TABLET PO SCH (09:08)
--- NOTE | 2016-09-16 11:18 | Nephrology Progress Note ---
Date of Encounter: 09/16/16 Time of Encounter: 11:12 - Assessment and Plan (1) Acute renal failure superimposed on stage 3 chronic kidney disease Current Visit: Yes Status: Acute Creatinine stable today, but BUN continues to rise. Will check 24 hour creatinine and urea clearance. Patient may need short term dialysis. Agree with changing lasix to oral and monitoring creatinine. Avoid nephrotoxins if possible. Adjust medications for renal function. (2) CHF (congestive heart failure) Current Visit: Yes Status: Acute Improving edema. Continue with furosemide. Qualifiers: Qualified Code(s): I50.23 - Acute on chronic systolic (congestive) heart failure (3) Azotemia Current Visit: Yes Status: Acute Check urea clearance. Patient may need short term dialysis if unable to improve BUN level. (4) Hyperphosphatemia Current Visit: Yes Status: Acute Follow phosphorus. Renal diet. Check vit D, pth and calcium. (5) Anemia Current Visit: No Status: Acute Check iron stores, vitamin b12 and folate. Qualifiers: Qualified Code(s): D64.9 - Anemia, unspecified Subjective Principal diagnosis: CHF, DARON Interval history: Patient seen and evaluated. He has no new complaints. His edema is improving. He is feeling slightly better. He is eager to ambulate. ROS otherwise stable. Objective - Vital Signs Vital signs: Vital Signs Temp Pulse Resp BP Pulse Ox 09/16/16 07:58 18 97 09/16/16 07:57 96 F L 71 18 122/75 99 09/16/16 04:43 97.6 F 70 20 127/80 96 09/15/16 23:57 97.4 F L 80 22 121/67 98 09/15/16 23:28 16 98 09/15/16 21:05 98 09/15/16 20:34 97.3 F L 87 14 108/74 100 09/15/16 16:15 97.4 F L 91 20 122/78 98 09/15/16 11:17 98.1 F 76 18 113/64 93 L Intake and Output 09/15/16 09/16/16 09/16/16 23:59 07:59 15:59 Intake Total 50 / 50 420 / 420 240 / 240 Output Total 500 / 500 400 / 400 Balance 50 / 50 -80 / -80 -160 / -160 Intake: Oral 50 / 50 420 / 420 240 / 240 Output: Urine 500 / 500 Catheter 400 / 400 Other: Meal Dinner Percent of Meal Consumed 40% Weight 101 kg Blood Glucose* 146 104 Patient Weight 09/16/16 23:59 Weight 101 kg - General Appearance General appearance: Present: well-developed, well-nourished EENT: Present: ATNC Neck: Present: supple Respiratory: Present: clear Cardiology: Present: edema, regular rate, regular rhythm Gastrointestinal: Present: normoactive bowel sounds, no tenderness Integumentary: Present: warm and dry Neurologic: Present: alert and oriented x3 Musculoskeletal: Present: no cyanosis Psychiatric: Present: mood/affect appropriate - Lab 09/14/16 06:40 09/16/16 05:28 Most recent lab results Calcium 9.7 mg/dL (8.6-10.8) 09/16/16 05:28 Phosphorus 6.8 mg/dL (2.3-4.7) H 09/10/16 01:28 Magnesium 2.3 mg/dL (1.6-2.6) 09/10/16 01:28 Urine Creatinine 72 mg/dL 09/10/16 13:50 Urine Sodium 44.0 mEq/L 09/10/16 13:50 - VTE Documentation of Mechanical Device: Graduated compression elastic hosiery Consult Discharge Plan - Plan Referrals: NO,PCP [Primary Care Provider] - (Patient will follow up with ECF pcp)
--- NOTE | 2016-09-16 15:02 | Internal Med Progress Note ---
Date of Encounter: 09/16/16 Time of Encounter: 11:35 - Assessment and plan (1) DARON (acute kidney injury) Current Visit: Yes Status: Acute Assessment and plan: Nephrology following. BUN and creatinine remain elevated. Decreased urine function with decreased urine output. Discussed with nephrology. Will check 24-hour urine creatinine. Follow results. High risk for complications (2) CKD (chronic kidney disease), stage III Current Visit: Yes Status: Chronic (3) CHF (congestive heart failure), NYHA class III Current Visit: No Status: Chronic Assessment and plan: Continue aspirin, carvedilol, simvastatin. Also on Lasix 60 mg by mouth twice a day. Qualifiers: Congestive heart failure type: systolic Congestive heart failure chronicity : chronic Qualified Code(s): I50.22 - Chronic systolic (congestive) heart failure (4) COPD (chronic obstructive pulmonary disease) Current Visit: No Status: Chronic Assessment and plan: Use DuoNeb as needed Qualifiers: COPD type: emphysema Emphysema type: centrilobular Qualified Code(s): J43.2 - Centrilobular emphysema (5) Elevated troponin Current Visit: No Status: Chronic (6) History of atrial fibrillation Current Visit: No Status: Chronic Assessment and plan: Rate controlled - Subjective Interval history: Patient is lying in bed and appears comfortable. Denies any shortness of breath or chest pain. Continues to have decreased urine output. - Constitutional Vitals: Temp Pulse Resp BP Pulse Ox 97.5 F L 100 18 111/70 98 09/16/16 12:08 09/16/16 12:08 09/16/16 12:08 09/16/16 12:08 09/16/16 12:08 General appearance: Present: cooperative, mild distress, A&O X 3, pleasant, answers questions appropriately - Respiratory Respiratory exam: Present: CTAB. Absent: accessory muscle use, rales, rhonchi, wheezes - Cardiovascular Cardiovascular exam: Present: RRR, +S1, +S2. Absent: diastolic murmur, gallop, rubs, systolic murmur - GI/Abdominal GI/Abdominal exam: Present: normal bowel sounds, soft, no peritoneal signs. Absent: distended, tenderness - Extremities Exam Extremities exam: Present: pedal edema, warm, radial pulses palpable and symetrical. Absent: calf tenderness, cyanotic - Neurological Exam Neurological exam: Present: alert, oriented X3, no focal deficits. Absent: facial droop, speech deficit Internal Medicine: Result - Labs CBC & Chem 7: 09/14/16 06:40 09/16/16 05:28 Labs: BMP 09/16/16 09/16/16 05:28 05:28 Sodium 146 H Potassium 4.2 Chloride 102 Carbon Dioxide 31 H BUN 144 H Creatinine 3.71 H 3.74 H Glucose 101 H Calcium 9.7 - ABG Interpretation ABG results: PT/INR, D-dimer PT 13.1 Seconds (9.4-12.1) H 09/09/16 13:21 - VTE Documentation of Mechanical Device: Graduated compression elastic hosiery Consult Discharge Plan - Plan Referrals: NO,PCP [Primary Care Provider] - (Patient will follow up with ECF pcp) - Attending Attestation This document has been at least partially created by [employer] recognition technology by Dr. Stinson. Errors in grammar, wording or other phrases may exist. If errors are found after the documentation is signed, they will be addressed individually in the addendum section of this document when appropriate.
[2016-09-16] MEDS: Melatonin 3 MG TABLET PO SCH (21:04)
[2016-09-16] MEDS: Acetaminophen 325 MG TABLET PO PRN (21:04)
[2016-09-17 06:10] LABS: Basophils % 0.3 %; Eosinophils # 0.1 K/mcL (0.0-0.6); Eosinophils % 1.9 %; Hematocrit 31.6 % (37.5-50.1); Hemoglobin 9.3 g/dL (12.9-16.9); Immature Granulocytes % 0.5 % (0-4); Lymphocytes # 0.6 K/mcL (0.6-4.6); Lymphocytes % 10.1 %; Mean Corpuscular HGB Conc 29.4 g/dL (31.6-35.5); Mean Corpuscular Hemoglobin 27.6 pg (28.0-33.3); Mean Corpuscular Volume 93.8 fL (83.0-100.0); Mean Platelet Volume 12.1 fL (9.4-12.4); Monocytes # 0.6 K/mcL (0.0-1.3); Monocytes % 9.8 %; Neutrophils # 4.9 K/mcL (1.6-8.9); Platelet Count 108 K/mcL (140-400); Red Blood Count 3.37 M/mcL (4.19-5.50); Red Cell Distribution Width 14.6 % (11.5-14.5); Segmented Neutrophils % 77.4 %
[2016-09-17] MEDS: *HR* Heparin 5,000 UNIT/ML VIAL SQ SCH ×2 (06:24→18:10)
[2016-09-17] MEDS: Sucralfate 1 GM TABLET PO SCH ×4 (06:24→21:05)
[2016-09-17 06:38] LABS: Albumin 3.7 g/dL (3.5-5.0); Calcium 9.6 mg/dL (8.6-10.8); Phosphorous 5.5 mg/dL (2.3-4.7); Potassium 4.2 mEq/L (3.5-4.5); Uric Acid 12.3 mg/dL (3.5-7.2)
[2016-09-17 07:04] LABS: Folate 9.7 ng/mL (7.0-31.4)
[2016-09-17] MEDS: Insulin LISPRO 300 UNITS/3 ML VIAL SQ SCH ×4 (08:49→20:59)
[2016-09-17] MEDS: Aspirin Enteric Coated 81 MG Tablet PO SCH (09:10)
[2016-09-17] MEDS: Loratadine 10 MG TABLET PO SCH (09:11)
[2016-09-17] MEDS: Multivit/Ca/Min/Fe/FA 1 TAB TABLET PO SCH (09:11)
--- NOTE | 2016-09-17 09:46 | Internal Med Progress Note ---
Date of Encounter: 09/17/16 Time of Encounter: 08:30 - Assessment and plan (1) DARON (acute kidney injury) Current Visit: Yes Status: Acute Assessment and plan: Renal function stable. Urine output is improving. 24-hour urine collection ongoing. Nephrology following patient at this time. High-risk for complications. (2) CKD (chronic kidney disease), stage III Current Visit: Yes Status: Chronic (3) CHF (congestive heart failure), NYHA class III Current Visit: No Status: Chronic Assessment and plan: Stable. Continue current management. On oral Lasix. Qualifiers: Congestive heart failure type: systolic Congestive heart failure chronicity : chronic Qualified Code(s): I50.22 - Chronic systolic (congestive) heart failure (4) COPD (chronic obstructive pulmonary disease) Current Visit: No Status: Chronic Assessment and plan: Continue nebs as needed Qualifiers: COPD type: emphysema Emphysema type: centrilobular Qualified Code(s): J43.2 - Centrilobular emphysema (5) Elevated troponin Current Visit: No Status: Chronic (6) History of atrial fibrillation Current Visit: No Status: Chronic Assessment and plan: Rate controlled and in sinus rhythm at this time - Subjective Interval history: The patient is awake and alert. Comfortable. Denies any new complaints at this time. Urine output is improving. No shortness of breath or chest pain. - Constitutional Vitals: Temp Pulse Resp BP Pulse Ox 97.4 F L 69 18 110/53 99 09/17/16 07:26 09/17/16 07:26 09/17/16 07:26 09/17/16 07:26 09/16/16 20:56 General appearance: Present: cooperative, mild distress, A&O X 3, pleasant, answers questions appropriately - Respiratory Respiratory exam: Present: CTAB. Absent: accessory muscle use, rales, rhonchi, wheezes - Cardiovascular Cardiovascular exam: Present: RRR, +S1, +S2. Absent: diastolic murmur, gallop, rubs, systolic murmur - GI/Abdominal GI/Abdominal exam: Present: normal bowel sounds, soft, no peritoneal signs. Absent: distended, tenderness - Extremities Exam Extremities exam: Present: warm, radial pulses palpable and symetrical. Absent : calf tenderness, cyanotic, pedal edema Additional comments: Lower extremity is bandaged with Mark wrap - Neurological Exam Neurological exam: Present: alert, CN II-XII intact, oriented X3, no focal deficits. Absent: facial droop, speech deficit Internal Medicine: Result - Labs CBC & Chem 7: 09/17/16 05:23 09/17/16 05:23 Labs: Short CBC 09/17/16 Range/Units 05:23 WBC 6.3 (4.3-11.1) K/mcL Hgb 9.3 L (12.9-16.9) g/dL Hct 31.6 L (37.5-50.1) % Plt Count 108 L (140-400) K/mcL Neutrophils # 4.9 (1.6-8.9) K/mcL BMP 09/16/16 09/17/16 05:28 05:23 Sodium 146 H Potassium 4.2 Chloride 102 Carbon Dioxide 32 H BUN 141 H Creatinine 3.74 H 3.53 H Glucose 118 H Calcium 9.6 Liver Function 09/17/16 Range/Units 05:23 Albumin 3.7 (3.5-5.0) g/dL - ABG Interpretation ABG results: PT/INR, D-dimer PT 13.1 Seconds (9.4-12.1) H 09/09/16 13:21 - VTE Documentation of Mechanical Device: Graduated compression elastic hosiery Consult Discharge Plan - Plan Referrals: NO,PCP [Primary Care Provider] - (Patient will follow up with ECF pcp) - Attending Attestation This document has been at least partially created by [employer] recognition technology by Dr. Stinson. Errors in grammar, wording or other phrases may exist. If errors are found after the documentation is signed, they will be addressed individually in the addendum section of this document when appropriate.
[2016-09-17] MEDS: Budesonide/Formoterol 160/4.5 MDI IH SCH ×2 (10:44→21:43)
[2016-09-17] MEDS ORDERED: IRON DEXTRAN COMPLEX IVPB ONE (11:00)
[2016-09-17] MEDS ORDERED: SODIUM CHLORIDE 0.9% IVPB ONE (11:00)
--- NOTE | 2016-09-17 11:00 | Nephrology Progress Note ---
Date of Encounter: 09/17/16 Time of Encounter: 10:57 - Assessment and Plan (1) Acute renal failure superimposed on stage 3 chronic kidney disease Current Visit: Yes Status: Acute Creatinine and BUN are stable today. Will check 24 hour creatinine and urea clearance. Patient may need short term dialysis. Agree with changing lasix to oral and monitoring creatinine. Avoid nephrotoxins if possible. Adjust medications for renal function. (2) CHF (congestive heart failure) Current Visit: Yes Status: Acute Improving edema. Continue with furosemide. Qualifiers: Qualified Code(s): I50.23 - Acute on chronic systolic (congestive) heart failure (3) Azotemia Current Visit: Yes Status: Acute Check urea clearance. Patient may need short term dialysis if unable to improve BUN level. (4) Hyperphosphatemia Current Visit: Yes Status: Acute Follow phosphorus. Renal diet. Phosphate binder started. (5) Anemia Current Visit: No Status: Acute Iron deficiency. Will order iv iron. vitamin b12 and folate are replete. Qualifiers: Qualified Code(s): D64.9 - Anemia, unspecified Subjective Principal diagnosis: CHF, DARON Interval history: Patient seen and evaluated. He has no new complaints. His edema is improving slightly. He is feeling slightly better. He is eager to ambulate. ROS otherwise stable. Objective - Vital Signs Vital signs: Vital Signs Temp Pulse Resp BP Pulse Ox 09/17/16 09:30 99 09/17/16 07:26 97.4 F L 69 18 110/53 09/17/16 04:20 97.6 F 70 20 124/79 09/17/16 00:03 97.7 F 94 20 109/68 09/16/16 20:56 16 99 09/16/16 19:49 97.7 F 98 20 106/65 100 09/16/16 16:15 97.9 F 92 17 116/71 98 09/16/16 12:08 97.5 F L 100 18 111/70 98 Intake and Output 09/16/16 09/17/16 09/17/16 23:59 07:59 15:59 Intake Total 100 / 100 0 / 0 60 / 60 Output Total 0 / 0 1100 / 1100 Balance 100 / 100 -1100 / -1100 60 / 60 Intake: Oral 100 / 100 0 / 0 60 / 60 Output: Catheter 0 / 0 1100 / 1100 Other: Meal Breakfast Percent of Meal Consumed 100% Weight 102 kg Blood Glucose* 187 122 Patient Weight 09/17/16 23:59 Weight 102 kg - General Appearance General appearance: Present: well-developed, well-nourished, chronically ill, frail EENT: Present: ATNC Neck: Present: supple Respiratory: Present: clear Cardiology: Present: edema (significant edema is still present in his feet. ), regular rate, regular rhythm Gastrointestinal: Present: normoactive bowel sounds, no tenderness Integumentary: Present: warm and dry Neurologic: Present: alert and oriented x3 Musculoskeletal: Present: no cyanosis Psychiatric: Present: mood/affect appropriate, cooperative - Lab 09/17/16 05:23 09/17/16 05:23 Most recent lab results Calcium 9.6 mg/dL (8.6-10.8) 09/17/16 05:23 Phosphorus 5.5 mg/dL (2.3-4.7) H 09/17/16 05:23 Magnesium 2.3 mg/dL (1.6-2.6) 09/10/16 01:28 Urine Creatinine 72 mg/dL 09/10/16 13:50 Urine Sodium 44.0 mEq/L 09/10/16 13:50 - VTE Documentation of Mechanical Device: Graduated compression elastic hosiery Consult Discharge Plan - Plan Referrals: NO,PCP [Primary Care Provider] - (Patient will follow up with ECF pcp)
[2016-09-17 15:27] LABS: Total Volume 24 Hour,Urine 1.59 Liters (0.80-1.80)
[2016-09-17 17:26] LABS: Creatinine 24 Hour,Urine 1.03 g/day (0.71-1.65); Protein/Creatinine Ratio,Urine 0.29 mg/mg (0-0.20)
[2016-09-17] MEDS: Melatonin 3 MG TABLET PO SCH (21:05)
[2016-09-18 05:40] LABS: Calcium 9.5 mg/dL (8.6-10.8); Potassium 4.2 mEq/L (3.5-4.5)
[2016-09-18] MEDS: *HR* Heparin 5,000 UNIT/ML VIAL SQ SCH ×2 (06:21→20:28)
[2016-09-18] MEDS: Sucralfate 1 GM TABLET PO SCH ×4 (06:22→20:27)
[2016-09-18] MEDS: Insulin LISPRO 300 UNITS/3 ML VIAL SQ SCH ×3 (07:27→16:37)
[2016-09-18] MEDS: Budesonide/Formoterol 160/4.5 MDI IH SCH ×2 (08:10→22:18)
[2016-09-18] MEDS: Aspirin Enteric Coated 81 MG Tablet PO SCH (08:34)
[2016-09-18] MEDS: Multivit/Ca/Min/Fe/FA 1 TAB TABLET PO SCH (08:34)
[2016-09-18] MEDS: Loratadine 10 MG TABLET PO SCH (08:35)
--- NOTE | 2016-09-18 09:45 | Internal Med Progress Note ---
Date of Encounter: 09/18/16 Time of Encounter: 09:25 - Assessment and plan (1) DARON (acute kidney injury) Current Visit: Yes Status: Acute Assessment and plan: Renal function improving. Patient having decent urine output. Nephrology following. As long as kidney function improves, he will not need hemodialysis. We will continue to monitor renal function and urine output. Nephrology following. On oral Lasix. (2) CKD (chronic kidney disease), stage III Current Visit: Yes Status: Chronic Assessment and plan: With acute kidney injury (3) CHF (congestive heart failure), NYHA class III Current Visit: No Status: Chronic Assessment and plan: Resolving. Pedal edema has significantly improved. On order Lasix. Continue aspirin, carvedilol and simvastatin. Qualifiers: Congestive heart failure type: systolic Congestive heart failure chronicity : chronic Qualified Code(s): I50.22 - Chronic systolic (congestive) heart failure (4) COPD (chronic obstructive pulmonary disease) Current Visit: No Status: Chronic Assessment and plan: Not in acute exacerbation. On O2 supplementation. Qualifiers: COPD type: emphysema Emphysema type: centrilobular Qualified Code(s): J43.2 - Centrilobular emphysema (5) Elevated troponin Current Visit: No Status: Chronic Assessment and plan: Likely related to demand ischemia and acute kidney injury. (6) History of atrial fibrillation Current Visit: No Status: Chronic Assessment and plan: Sinus rhythm with normal heart rate. - Subjective Interval history: Patient continues to do well. Denies any complaints at this time. He did have some burning sensation in his both lower extremities so last night and so the compression bandages were taken off. He feels better now. - Constitutional Vitals: Temp Pulse Resp BP Pulse Ox 97.8 F 72 18 105/69 99 09/18/16 07:03 09/18/16 07:03 09/18/16 08:10 09/18/16 07:03 09/18/16 08:23 General appearance: Present: cooperative, mild distress, A&O X 3, pleasant, answers questions appropriately - Respiratory Respiratory exam: Present: CTAB. Absent: accessory muscle use, rales, rhonchi, wheezes - Cardiovascular Cardiovascular exam: Present: RRR, +S1, +S2. Absent: diastolic murmur, gallop, rubs, systolic murmur - GI/Abdominal GI/Abdominal exam: Present: normal bowel sounds, soft, no peritoneal signs. Absent: distended, tenderness - Extremities Exam Extremities exam: Present: warm, radial pulses palpable and symetrical. Absent : calf tenderness, cyanotic, pedal edema - Neurological Exam Neurological exam: Present: alert, oriented X3, no focal deficits. Absent: facial droop, speech deficit Internal Medicine: Result - Labs CBC & Chem 7: 09/17/16 05:23 09/18/16 04:38 Labs: BMP 09/18/16 04:38 Sodium 146 H Potassium 4.2 Chloride 105 Carbon Dioxide 31 H BUN 128 H Creatinine 3.10 H Glucose 100 H Calcium 9.5 - ABG Interpretation ABG results: PT/INR, D-dimer PT 13.1 Seconds (9.4-12.1) H 09/09/16 13:21 - VTE Documentation of Mechanical Device: Graduated compression elastic hosiery Consult Discharge Plan - Plan Referrals: NO,PCP [Primary Care Provider] - (Patient will follow up with ECF pcp) - Attending Attestation This document has been at least partially created by [employer] recognition technology by Dr. Stinson. Errors in grammar, wording or other phrases may exist. If errors are found after the documentation is signed, they will be addressed individually in the addendum section of this document when appropriate.
--- NOTE | 2016-09-18 18:34 | Nephrology Progress Note ---
Date of Encounter: 09/19/16 Time of Encounter: 18:34 - Assessment and Plan (1) Acute renal failure superimposed on stage 3 chronic kidney disease Current Visit: Yes Status: Acute Creatinine and BUN are improved today. Avoid nephrotoxins if possible. Adjust medications for renal function. (2) CHF (congestive heart failure) Current Visit: Yes Status: Acute Improving edema. Continue with furosemide. Qualifiers: Qualified Code(s): I50.9 - Heart failure, unspecified (3) Azotemia Current Visit: Yes Status: Acute Improving BUN (4) Hyperphosphatemia Current Visit: Yes Status: Acute Follow phosphorus. Renal diet. Phosphate binder started. (5) Anemia Current Visit: No Status: Acute Iron deficiency. Gave iron dextran. vitamin b12 and folate are replete. Qualifiers: Qualified Code(s): D64.9 - Anemia, unspecified Subjective Principal diagnosis: CHF, DARON Interval history: Patient seen and evaluated. He is asleep at the time of evaluation. ROS unobtainable. He appears comfortable. . Objective - Vital Signs Vital signs: Vital Signs Temp Pulse Resp BP Pulse Ox 09/18/16 16:15 98.1 F 69 18 114/72 96 09/18/16 11:00 98.2 F 75 18 112/68 96 09/18/16 08:23 99 09/18/16 08:10 18 99 09/18/16 07:03 97.8 F 72 18 105/69 99 09/18/16 05:00 97.6 F 75 20 102/65 99 09/18/16 01:03 97.7 F 90 20 91/62 100 09/17/16 21:43 17 96 09/17/16 20:42 98.3 F 98 20 129/79 Intake and Output 09/18/16 09/18/16 09/18/16 07:59 15:59 23:59 Intake Total 240 / 240 Output Total 450 / 450 700 / 700 Balance -450 / -450 -460 / -460 Intake: Oral 240 / 240 Output: Catheter 450 / 450 700 / 700 Other: Meal Breakfast Percent of Meal Consumed 100% Blood Glucose* 108 135 148 - General Appearance General appearance: Present: well-developed, well-nourished EENT: Present: ATNC Neck: Present: supple Respiratory: Present: clear Cardiology: Present: edema Gastrointestinal: Present: normoactive bowel sounds, no tenderness Integumentary: Present: warm and dry Additional Comments: asleep Musculoskeletal: Present: no cyanosis - Lab 09/17/16 05:23 09/18/16 04:38 Most recent lab results Calcium 9.5 mg/dL (8.6-10.8) 09/18/16 04:38 Phosphorus 5.5 mg/dL (2.3-4.7) H 09/17/16 05:23 Magnesium 2.3 mg/dL (1.6-2.6) 09/10/16 01:28 Urine Creatinine 65 mg/dL 09/17/16 15:00 Ur Total Protein 24 Hr 302 mg/day (0-299) H 09/17/16 15:00 Urine Sodium 44.0 mEq/L 09/10/16 13:50 Urine Total Protein 19 mg/dL (1-14) H 09/17/16 15:00 - VTE Documentation of Mechanical Device: Graduated compression elastic hosiery Consult Discharge Plan - Plan Referrals: NO,PCP [Primary Care Provider] - (Patient will follow up with ECF pcp) Lenore Gil DO [Partnered Physician] - 10/03/16 1:15 pm
[2016-09-18] MEDS: Melatonin 3 MG TABLET PO SCH (20:26)
[2016-09-19] MEDS: Insulin LISPRO 300 UNITS/3 ML VIAL SQ SCH ×5 (01:52→22:34)
[2016-09-19 07:28] LABS: Calcium 9.9 mg/dL (8.6-10.8)
[2016-09-19] MEDS: Aspirin Enteric Coated 81 MG Tablet PO SCH (08:26)
[2016-09-19] MEDS: Multivit/Ca/Min/Fe/FA 1 TAB TABLET PO SCH (08:26)
[2016-09-19] MEDS: Loratadine 10 MG TABLET PO SCH (08:26)
[2016-09-19] MEDS: Sucralfate 1 GM TABLET PO SCH ×4 (08:26→22:33)
[2016-09-19] MEDS: *HR* Heparin 5,000 UNIT/ML VIAL SQ SCH ×2 (08:27→22:33)
--- NOTE | 2016-09-19 10:06 | Nephrology Progress Note ---
Date of Encounter: 09/19/16 Time of Encounter: 10:02 - Assessment and Plan (1) Acute renal failure superimposed on stage 3 chronic kidney disease Current Visit: Yes Status: Acute Scr slightly higher than yesterday at 3.13 and BUN up to 137; GFR remains stable at 19 Good UOP at 1150ml Will continue to monitor kidney function closely Avoid nephrotoxins if possible (2) Azotemia Current Visit: Yes Status: Acute Rising BUN again today; monitor closely (3) CHF (congestive heart failure) Current Visit: Yes Status: Acute per primary Qualifiers: Congestive heart failure type: systolic Congestive heart failure chronicity : chronic Qualified Code(s): I50.22 - Chronic systolic (congestive) heart failure Subjective Principal diagnosis: CHF, DARON Interval history: Patient seen and examined. Sleeping through exam. Objective - Vital Signs Vital signs: Vital Signs Temp Pulse Resp BP Pulse Ox 09/19/16 07:56 97.4 F L 70 18 129/74 98 09/19/16 04:15 98 F 77 16 116/77 97 09/19/16 00:33 97.6 F 70 20 114/73 98 09/18/16 22:20 16 99 09/18/16 20:56 97.6 F 78 16 116/68 99 09/18/16 16:15 98.1 F 69 18 114/72 96 09/18/16 11:00 98.2 F 75 18 112/68 96 Intake and Output 09/18/16 09/19/16 09/19/16 23:59 07:59 15:59 Other: Weight 102.5 kg Blood Glucose* 132 114 Patient Weight 09/19/16 23:59 Weight 102.5 kg - General Appearance General appearance: Present: well-developed, well-nourished EENT: Present: ATNC Neck: Present: supple Respiratory: Present: clear Cardiology: Present: edema (mild upper and lower extremities), normal S1, normal S2 Gastrointestinal: Present: no guarding Integumentary: Present: warm and dry Musculoskeletal: Present: no deformities Psychiatric: Present: cooperative - Lab 09/17/16 05:23 09/19/16 06:12 Most recent lab results Calcium 9.9 mg/dL (8.6-10.8) 09/19/16 06:12 Phosphorus 5.5 mg/dL (2.3-4.7) H 09/17/16 05:23 Magnesium 2.3 mg/dL (1.6-2.6) 09/10/16 01:28 Urine Creatinine 65 mg/dL 09/17/16 15:00 Ur Total Protein 24 Hr 302 mg/day (0-299) H 09/17/16 15:00 Urine Sodium 44.0 mEq/L 09/10/16 13:50 Urine Total Protein 19 mg/dL (1-14) H 09/17/16 15:00 - VTE Documentation of Mechanical Device: Graduated compression elastic hosiery Consult Discharge Plan - Plan Referrals: NO,PCP [Primary Care Provider] - (Patient will follow up with ECF pcp) Lenore Gil DO [Partnered Physician] - 10/03/16 1:15 pm
[2016-09-19] MEDS: Budesonide/Formoterol 160/4.5 MDI IH SCH ×2 (11:27→20:34)
--- NOTE | 2016-09-19 17:22 | Internal Med Progress Note ---
Date of Encounter: 09/19/16 Time of Encounter: 12:15 - Assessment and plan (1) Acute renal failure superimposed on stage 3 chronic kidney disease Current Visit: Yes Status: Acute Assessment and plan: cardiorenal failure due to acute heart failure. Patient received IV diuresis along with albumin. Nephrology is following. Continue po furosemide. Patient is negative 4 L since admission. (2) Acute on chronic systolic heart failure Current Visit: No Status: Acute Assessment and plan: history of systolic heart failure LVEF 25% s/p Biv-ICD. [facility] 2010, minimal CAD. NICMP. Patient presented with worsening dyspnea and lower extremity edema. BNP 2601. Chest x-ray show pulmonary vascular congestion. Pt received aggressive IV diuresis along with albumin but developed Steven and azotemia. Lasix 60 mg bid. fluid restriction, coreg. not on ACEi/ARB due to STEVEN. Lower extremities wrapped and elevated. (3) Acute on chronic respiratory failure with hypoxemia Current Visit: No Status: Acute Assessment and plan: secondary to fluid overload from heart failure and acute kidney injury over chronic kidney disease. He does wear oxygen at 3 L nasal cannula. required 4L Nc on admission. Improved after diuresis, now tolerating his home dose of oxygen at 3 L via NC Plan as above. (4) Pulmonary hypertension Current Visit: Yes Status: Acute Assessment and plan: oral lasix. (5) Azotemia Current Visit: Yes Status: Acute Assessment and plan: BUNs increased to 137 today. Close monitor. (6) Diabetes Current Visit: No Status: Acute Assessment and plan: Insulin sliding scale. Diabetic diet. Accu-Cheks are adequately. 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 Regular rhythm. (8) Hyperphosphatemia Current Visit: Yes Status: Acute Assessment and plan: On Renvela. (9) HTN (hypertension) Current Visit: Yes Status: Acute Assessment and plan: BP is adequate Qualifiers: Hypertension type: essential hypertension Qualified Code(s): I10 - Essential (primary) hypertension (10) Anemia Current Visit: Yes Status: Chronic Assessment and plan: close monitor. hgb 9. no bleeding Qualifiers: Anemia type: other cause Other causes of anemia: chronic disease, kidney Qualified Code(s): N18.9 - Chronic kidney disease, unspecified; D63.1 - Anemia in chronic kidney disease - Subjective Interval history: Patient is alert but confused. he has no complaints. - Constitutional Vitals: Temp Pulse Resp BP Pulse Ox 98.2 F 99 18 122/75 98 09/19/16 11:42 09/19/16 11:42 09/19/16 11:42 09/19/16 11:42 09/19/16 11:42 General appearance: Present: cooperative, A&O X 2, pleasant, no acute distress, answers questions appropriately - Eye Eye exam: Present: PERRL, sclera anicteric - Neck Neck exam general surgery: Present: supple, trachea midline. Absent: lymphadenopathy - Respiratory Respiratory exam: Present: CTAB - Cardiovascular Cardiovascular exam: Present: RRR - GI/Abdominal GI/Abdominal exam: Present: normal bowel sounds, soft. Absent: distended, tenderness - Extremities Exam Additional comments: left upper extremity swelling, chronic per patient (almost 20 years). Bilateral swelling of legs - Back Exam Back exam: Absent: CVA tenderness (L), CVA tenderness (R) - Skin Skin exam: Present: dry Internal Medicine: Result - Labs CBC & Chem 7: 09/17/16 05:23 09/19/16 06:12 Labs: BMP 09/19/16 06:12 Sodium 144 Potassium 5.0 H Chloride 105 Carbon Dioxide 28 BUN 137 H Creatinine 3.13 H Glucose 112 H Calcium 9.9 - ABG Interpretation ABG results: PT/INR, D-dimer PT 13.1 Seconds (9.4-12.1) H 09/09/16 13:21 - VTE Documentation of Mechanical Device: Graduated compression elastic hosiery Consult Discharge Plan - Plan Referrals: NO,PCP [Primary Care Provider] - (Patient will follow up with ECF pcp) Lenore Gil DO [Partnered Physician] - 10/03/16 1:15 pm
[2016-09-19] MEDS: Melatonin 3 MG TABLET PO SCH (22:33)
[2016-09-20] MEDS: *HR* Heparin 5,000 UNIT/ML VIAL SQ SCH ×2 (06:29→21:26)
[2016-09-20] MEDS: Sucralfate 1 GM TABLET PO SCH ×4 (06:30→21:26)
[2016-09-20 06:55] LABS: Calcium 10.2 mg/dL (8.6-10.8); Phosphorous 4.9 mg/dL (2.3-4.7)
[2016-09-20] MEDS ORDERED: *HR* Heparin 10,000 UNIT/10 ML VIAL IV PRN (07:38)
[2016-09-20] MEDS ORDERED: 0.9 % Sodium Chloride 250 ML IV PRN (07:38)
[2016-09-20] MEDS ORDERED: 0.9 % Sodium Chloride 1,000 ML PRIME SCH (07:45)
[2016-09-20] MEDS: Insulin LISPRO 300 UNITS/3 ML VIAL SQ SCH ×4 (08:22→21:20)
[2016-09-20] MEDS: Multivit/Ca/Min/Fe/FA 1 TAB TABLET PO SCH (08:26)
[2016-09-20] MEDS: Loratadine 10 MG TABLET PO SCH (08:26)
[2016-09-20] MEDS: Aspirin Enteric Coated 81 MG Tablet PO SCH (08:26)
[2016-09-20] MEDS ORDERED: Heparin 1,000 UNITS/500 mL NS 500 ML ONE (09:08)
[2016-09-20] MEDS ORDERED: *HR* Heparin 5,000 UNIT/ML VIAL ONE (10:18)
--- NOTE | 2016-09-20 10:22 | IR Procedure Note ---
Date of procedure: 09/20/16 Consent Obtained: Written consent Timeout: Correct patient and procedure verified, Time out performed, Skin prep completed Local anesthetic: Lidocaine 1% Indications: ARF Procedure Performed: Temp dialysis catheter placement Results/Findings: RIJ 12 F temp dialysis catheter placement Complications: None; Tolerated procedure well (Monitor on floor)
[2016-09-20] MEDS: Budesonide/Formoterol 160/4.5 MDI IH SCH ×2 (10:46→21:02)
[2016-09-20] MEDS ORDERED: 0.9 % Sodium Chloride 2,000 ML ONE (12:08)
[2016-09-20 12:37] LABS: Hepatitis B Surface Antigen Nonreactive (Nonreactive)
--- NOTE | 2016-09-20 13:44 | Nephrology Progress Note ---
Date of Encounter: 09/20/16 Time of Encounter: 13:44 - Assessment and Plan (1) Acute renal failure superimposed on stage 3 chronic kidney disease Current Visit: Yes Status: Acute Creatinine and BUN are minimally changed. Patient agreed last night and this morning to begin dialysis. He has since changed his mind and wants to wait. Avoid nephrotoxins if possible. Adjust medications for renal function. Continue to follow labs. (2) CHF (congestive heart failure) Current Visit: Yes Status: Acute Improving edema. Continue with furosemide. Qualifiers: Congestive heart failure type: systolic Congestive heart failure chronicity : chronic Qualified Code(s): I50.22 - Chronic systolic (congestive) heart failure (3) Azotemia Current Visit: Yes Status: Acute Azotemia not significantly improving. Initial plan for HD will continue to monitor without HD as the patient has withdrawn his consent. (4) Hyperphosphatemia Current Visit: Yes Status: Acute Follow phosphorus. Renal diet. Phosphate binder started. (5) Anemia Current Visit: No Status: Acute Iron deficiency. Gave iron dextran. vitamin b12 and folate are replete. Qualifiers: Qualified Code(s): D64.9 - Anemia, unspecified Subjective Principal diagnosis: CHF, DARON Interval history: Patient seen and evaluated. When I initially spoke with the patient after getting his HD catheter he was willing to go to HD after I explained the process and the risks. Later I was informed by the nurse that he had changed his mind and wanted to talk with his family again before proceeding. He had no new complaint. Objective - Vital Signs Vital signs: Vital Signs Temp Pulse Resp BP Pulse Ox 09/20/16 10:53 97.5 F L 92 20 109/70 99 09/20/16 07:08 96.5 F L 71 20 135/83 96 09/20/16 02:16 97.8 F 88 18 122/74 98 09/19/16 23:35 98.2 F 94 18 117/84 96 09/19/16 20:35 16 84 L 09/19/16 19:09 97.8 F 100 16 106/72 96 Intake and Output 09/19/16 09/20/16 09/20/16 23:59 07:59 15:59 Intake Total 120 / 120 360 / 360 Balance 120 / 120 360 / 360 Intake: Oral 120 / 120 360 / 360 Other: Meal Lunch Percent of Meal Consumed 25% # Urine Diapers 1 1 1 Weight 103.1 kg Blood Glucose* 106 85 145 Patient Weight 09/20/16 23:59 Weight 103.1 kg - General Appearance General appearance: Present: well-developed, well-nourished EENT: Present: ATNC Neck: Present: supple Respiratory: Present: clear Cardiology: Present: edema (in his bilateral hands. ), regular rate, regular rhythm Gastrointestinal: Present: normoactive bowel sounds, no tenderness Integumentary: Present: warm and dry Neurologic: Present: alert and oriented x3 Musculoskeletal: Present: no cyanosis Psychiatric: Present: mood/affect appropriate - Lab 09/17/16 05:23 09/20/16 05:57 Most recent lab results Calcium 10.2 mg/dL (8.6-10.8) 09/20/16 05:57 Phosphorus 4.9 mg/dL (2.3-4.7) H 09/20/16 05:57 Magnesium 2.3 mg/dL (1.6-2.6) 09/10/16 01:28 Urine Creatinine 65 mg/dL 09/17/16 15:00 Ur Total Protein 24 Hr 302 mg/day (0-299) H 09/17/16 15:00 Urine Sodium 44.0 mEq/L 09/10/16 13:50 Urine Total Protein 19 mg/dL (1-14) H 09/17/16 15:00 - VTE Documentation of Mechanical Device: Graduated compression elastic hosiery Consult Discharge Plan - Plan Referrals: NO,PCP [Primary Care Provider] - (Patient will follow up with ECF pcp) Lenore Gil DO [Partnered Physician] - 10/03/16 1:15 pm
--- NOTE | 2016-09-20 16:02 | Internal Med Progress Note ---
Date of Encounter: 09/20/16 Time of Encounter: 11:45 - Assessment and plan (1) Acute renal failure superimposed on stage 3 chronic kidney disease Current Visit: Yes Status: Acute Assessment and plan: cardiorenal failure due to acute heart failure. Patient received IV diuresis along with albumin. Nephrology is following. Placement of permcath today. planning to start dialysis tomorrow per patient request. (2) Acute on chronic systolic heart failure Current Visit: No Status: Acute Assessment and plan: history of systolic heart failure LVEF 25% s/p Biv-ICD. [facility] 2010, minimal CAD. NICMP. Patient presented with worsening dyspnea and lower extremity edema. BNP 2601. Chest x-ray show pulmonary vascular congestion. Pt received aggressive IV diuresis along with albumin but developed Steven and azotemia. Lasix 60 mg bid. fluid restriction, coreg. not on ACEi/ARB due to STEVEN. Lower extremities wrapped and elevated. (3) Acute on chronic respiratory failure with hypoxemia Current Visit: No Status: Acute Assessment and plan: secondary to fluid overload from heart failure and acute kidney injury over chronic kidney disease. He does wear oxygen at 3 L nasal cannula. required 4L Nc on admission. Improved after diuresis, now tolerating his home dose of oxygen at 3 L via [place] Plan as above. (4) Pulmonary hypertension Current Visit: Yes Status: Acute Assessment and plan: oral lasix. (5) Azotemia Current Visit: Yes Status: Acute Assessment and plan: BUNs increased to 137 today. Close monitor. (6) Diabetes Current Visit: No Status: Acute Assessment and plan: Insulin sliding scale. Diabetic diet. Accu-Cheks are adequately. Qualifiers: Diabetes mellitus type: type 2 Diabetes mellitus complication status: with kidney complications Diabetes mellitus complication detail: with chronic kidney disease Diabetes mellitus detention insulin use: with detention use Chronic kidney disease stage: stage 3 (moderate) Qualified Code(s): E11.22 - Type 2 diabetes mellitus with diabetic chronic kidney disease; N18.3 - Chronic kidney disease, stage 3 (moderate); Z79.4 - correction (current) use of insulin (7) History of atrial fibrillation Current Visit: No Status: Chronic Assessment and plan: Continue Coreg. Regular rhythm. (8) Hyperphosphatemia Current Visit: Yes Status: Acute Assessment and plan: On Renvela. (9) HTN (hypertension) Current Visit: Yes Status: Acute Assessment and plan: BP is adequate Qualifiers: Hypertension type: essential hypertension Qualified Code(s): I10 - Essential (primary) hypertension (10) Anemia Current Visit: Yes Status: Chronic Assessment and plan: close monitor. hgb 9. no bleeding Qualifiers: Anemia type: other cause Other causes of anemia: chronic disease, kidney Qualified Code(s): N18.9 - Chronic kidney disease, unspecified; D63.1 - Anemia in chronic kidney disease - Subjective Interval history: Pt underwent placement of dialysis catheter. Patient is sleepy but wakes up easily. no complaints. - Constitutional Vitals: Temp Pulse Resp BP Pulse Ox 97.6 F 70 28 127/74 95 09/20/16 15:27 09/20/16 15:27 09/20/16 15:27 09/20/16 15:27 09/20/16 15:27 General appearance: Present: cooperative, A&O X 2, pleasant, no acute distress, answers questions appropriately - Eye Eye exam: Present: PERRL, sclera anicteric - Neck Neck exam general surgery: Present: supple, trachea midline. Absent: lymphadenopathy - Respiratory Respiratory exam: Present: CTAB Additional comments: right permcath in place - Cardiovascular Cardiovascular exam: Present: RRR - GI/Abdominal GI/Abdominal exam: Present: normal bowel sounds, soft. Absent: distended, tenderness - Extremities Exam Extremities exam: Present: pedal edema (bilateral leg swelling) - Skin Skin exam: Present: dry Internal Medicine: Result - Labs CBC & Chem 7: 09/17/16 05:23 09/20/16 05:57 Labs: BMP 09/20/16 05:57 Sodium 146 H Potassium 5.0 H Chloride 104 Carbon Dioxide 31 H BUN 146 H Creatinine 3.07 H Glucose 91 Calcium 10.2 - ABG Interpretation ABG results: PT/INR, D-dimer PT 13.1 Seconds (9.4-12.1) H 09/09/16 13:21 - Impressions Impressions Guidance Needle Placement Ultrasound 09/20/16 00:00 IMPRESSION: 1. Right internal jugular vein temporary dialysis catheter placement as discussed above. D/ / Paresh El MD / Paresh El MD Interpreting Provider: Paresh El MD Insertion Non-Tunneled Catheter 09/20/16 07:36 IMPRESSION: 1. Right internal jugular vein temporary dialysis catheter placement as discussed above. D/ / Paresh El MD / Paresh El MD Interpreting Provider: Paresh El MD - VTE Documentation of Mechanical Device: Graduated compression elastic hosiery Consult Discharge Plan - Plan Referrals: NO,PCP [Primary Care Provider] - (Patient will follow up with ECF pcp) Lenore Gil DO [Partnered Physician] - 10/03/16 1:15 pm
[2016-09-20] MEDS: Melatonin 3 MG TABLET PO SCH (21:26)
[2016-09-21] MEDS: Acetaminophen 325 MG TABLET PO PRN (06:55)
[2016-09-21] MEDS: Sucralfate 1 GM TABLET PO SCH ×2 (08:27→15:24)
[2016-09-21] MEDS: Aspirin Enteric Coated 81 MG Tablet PO SCH (08:27)
[2016-09-21] MEDS: Multivit/Ca/Min/Fe/FA 1 TAB TABLET PO SCH (08:27)
[2016-09-21] MEDS: Loratadine 10 MG TABLET PO SCH (08:28)
[2016-09-21 09:34] LABS: Calcium 10.6 mg/dL (8.6-10.8); Potassium 5.9 mEq/L (3.5-4.5)
[2016-09-21] MEDS ORDERED: 0.9 % Sodium Chloride 250 ML IV PRN ×2 (09:48→14:56)
--- NOTE | 2016-09-21 10:14 | Internal Med Progress Note ---
Date of Encounter: 09/21/16 Time of Encounter: 09:15 - Assessment and plan (1) Acute metabolic encephalopathy Current Visit: Yes Status: Acute Assessment and plan: secondary to uremia from STEVEN. somnolent but open his eyes, knows his name, the name of the hospital and his age. he does not want dialysis and wants us to speak with his family and agrees with palliative consultation. Called family and they stated that patient is DNR and they will fax his living will soon. aspiration precautions consult palliative service (2) Acute renal failure superimposed on stage 3 chronic kidney disease Current Visit: Yes Status: Acute Assessment and plan: cardiorenal failure due to acute heart failure. Patient received IV diuresis along with albumin. Nephrology is following. Had placement of permcath 09/20 but declines to start dialysis. (3) Acute on chronic systolic heart failure Current Visit: No Status: Acute Assessment and plan: history of systolic heart failure LVEF 25% s/p Biv-ICD. [facility] 2010, minimal CAD. NICMP. Patient presented with worsening dyspnea and lower extremity edema. BNP 2601. Chest x-ray show pulmonary vascular congestion. Pt received aggressive IV diuresis along with albumin but developed Steven and azotemia. Lasix 60 mg bid. fluid restriction, coreg. not on ACEi/ARB due to STEVEN. Lower extremities wrapped and elevated. (4) Acute on chronic respiratory failure with hypoxemia Current Visit: No Status: Acute Assessment and plan: secondary to fluid overload from heart failure and acute kidney injury over chronic kidney disease. He does wear oxygen at 3 L nasal cannula. required 4L Nc on admission. Improved after diuresis, now tolerating his home dose of oxygen at 3 L via [place] Plan as above. (5) Pulmonary hypertension Current Visit: Yes Status: Acute Assessment and plan: oral lasix. (6) Azotemia Current Visit: Yes Status: Acute Assessment and plan: BUNs increased to 137 today. Close monitor. (7) Diabetes Current Visit: No Status: Acute Assessment and plan: Insulin sliding scale. Diabetic diet. Accu-Cheks are adequately. Qualifiers: Diabetes mellitus type: type 2 Diabetes mellitus complication status: with kidney complications Diabetes mellitus complication detail: with chronic kidney disease Diabetes mellitus alf insulin use: with human resources team member use Chronic kidney disease stage: stage 3 (moderate) Qualified Code(s): E11.22 - Type 2 diabetes mellitus with diabetic chronic kidney disease; N18.3 - Chronic kidney disease, stage 3 (moderate); Z79.4 - intermediate (current) use of insulin (8) History of atrial fibrillation Current Visit: No Status: Chronic Assessment and plan: Continue Coreg. Regular rhythm. (9) Hyperphosphatemia Current Visit: Yes Status: Acute Assessment and plan: On Renvela. (10) HTN (hypertension) Current Visit: Yes Status: Acute Assessment and plan: BP is adequate Qualifiers: Hypertension type: essential hypertension Qualified Code(s): I10 - Essential (primary) hypertension (11) Anemia Current Visit: Yes Status: Chronic Assessment and plan: close monitor. hgb 9. no bleeding Qualifiers: Anemia type: other cause Other causes of anemia: chronic disease, kidney Qualified Code(s): N18.9 - Chronic kidney disease, unspecified; D63.1 - Anemia in chronic kidney disease - Subjective Interval history: Pt very sleepy, he is refusing dialysis. - Constitutional Vitals: Temp Pulse Resp BP Pulse Ox 97.6 F 70 18 142/67 94 L 09/21/16 07:50 09/21/16 07:50 09/21/16 07:50 09/21/16 07:50 09/21/16 07:50 Exam: somnolent but open his eyes, knows his name, the name of the hospital and his age. he does not want dialysis and wants us to speak with his family and agrees with palliative consultation. - Eye Eye exam: Present: sclera anicteric - Neck Neck exam general surgery: Present: supple, trachea midline Additional comments: right permcath at site - Respiratory Respiratory exam: Present: CTAB - Cardiovascular Cardiovascular exam: Present: RRR - GI/Abdominal GI/Abdominal exam: Present: normal bowel sounds, soft. Absent: distended, tenderness - Extremities Exam Extremities exam: Present: pedal edema (swelling of upper and lower extremities. ) - Skin Skin exam: Present: dry Internal Medicine: Result - Labs CBC & Chem 7: 09/17/16 05:23 09/21/16 09:03 Labs: BMP 09/21/16 09:03 Sodium 146 H Potassium 5.9 H Chloride 104 Carbon Dioxide 28 BUN 166 H Creatinine 3.59 H Glucose 119 H Calcium 10.6 - ABG Interpretation ABG results: PT/INR, D-dimer PT 13.1 Seconds (9.4-12.1) H 09/09/16 13:21 - Impressions Impressions Guidance Needle Placement Ultrasound 09/20/16 00:00 IMPRESSION: 1. Right internal jugular vein temporary dialysis catheter placement as discussed above. D/ / Paresh El MD / Paresh El MD Interpreting Provider: Paresh El MD Insertion Non-Tunneled Catheter 09/20/16 07:36 IMPRESSION: 1. Right internal jugular vein temporary dialysis catheter placement as discussed above. D/ / Paresh El MD / Paresh El MD Interpreting Provider: Paresh El MD - VTE Documentation of Mechanical Device: Graduated compression elastic hosiery Consult Discharge Plan - Plan Referrals: NO,PCP [Primary Care Provider] - (Patient will follow up with ECF pcp) Lenore Gil DO [Partnered Physician] - 10/03/16 1:15 pm
[2016-09-21] MEDS: Budesonide/Formoterol 160/4.5 MDI IH SCH (11:22)
[2016-09-21] MEDS ORDERED: 0.9 % Sodium Chloride 2,000 ML ONE (12:58)
[2016-09-21 14:18] LABS: Basophils % 0.1 %; Hematocrit 34.8 % (37.5-50.1); Hemoglobin 10.1 g/dL (12.9-16.9); Immature Platelets 7.9 % (1.1-6.1); Lymphocytes # 0.5 K/mcL (0.6-4.6); Lymphocytes % 3.4 %; Mean Corpuscular Hemoglobin 27.6 pg (28.0-33.3); Mean Corpuscular Volume 95.1 fL (83.0-100.0); Mean Platelet Volume 11.8 fL (9.4-12.4); Monocytes # 0.7 K/mcL (0.0-1.3); Monocytes % 5.3 %; Neutrophils # 11.8 K/mcL (1.6-8.9); Nucleated Red Blood Cells 0.2 /100 WBC (0); Platelet Count 103 K/mcL (140-400); Red Blood Count 3.66 M/mcL (4.19-5.50); Red Cell Distribution Width 15.6 % (11.5-14.5); Segmented Neutrophils % 90.2 %
--- NOTE | 2016-09-21 14:19 | Event Note ---
<Donta Rashid - Last Filed: 09/21/16 14:14> Date of Encounter: 09/21/16 Time of Encounter: 14:14 Rapid response was called to the patient's room due to unresponsiveness. Upon my arrival the patient was unresponsive to verbal or painful stimuli. On physical exam patient had coarse rales and rhonchi in his lungs bilaterally, extremities were cool to touch. Vital signs showed a blood pressure 100/60, pulse rate of 100, oxygen saturation 100% on 15 L nonrebreather. CODE STATUS was confirmed to be DNR CCA/DNI. Power of research attorney was contacted. Most likely caused this point appears to be uremia secondary to acute kidney failure. Patient did receive a dialysis session today that was cut short due to shortness of breath. Will obtain chest x-ray, routine labs, ABG. The hospitalist caring for the patient, Dr. Chavez, was present and also evaluated the patient and will continue care of the patient. <Amanda Rock - Last Filed: 09/21/16 15:50> I examined this patient and reviewed laboratory, imaging and all diagnostic data. My medical decision-making was reviewed with Dr Rashid - Resident Physician. I agree with the documented findings, disposition and treatment plan as described above. Critical care first hour. Time spent 30 minutes. 85- year-old male admitted for acute hypoxemic respiratory failure secondary to acute systolic heart failure and acute over chronic kidney disease stage IV. Patient was having dialysis when he became tachypneic. He was immediately sent back to his hospital room. On arrival, patient was unresponsive and rapid response team was paged. Mr Brett Deal, his POA, confirmed patient is DNR-CCA -DNI. On exam, patient is unresponsive to strong tactile stimuli. He is non- rebreather mask, SaO2 100%, pulse 100, BP 100/60. CXR showed right base infiltrate with small pleural effusion. ABG, pH 7.21 PCO2 88 PO2 142 bicarbonate 35. Lactic acid 1.1 WBC 13. Troponin 0.28. a/p 1. Acute on chronic respiratory failure with new hypercapnia. 2. Acute respiratory acidosis. 3. Sepsis secondary to Aspiration pneumonia. WBC 13. Heart rate 100. Patient is somnolent. 4. Acute encephalopathy secondary to sepsis and uremia. 5. Elevated troponin. Likely supply-demand mismatch from sepsis. BiPAP 14/8 FiO2 50, IV Zosyn. Repeat ABG at 4 PM. Jessica every 4 hours I spoke with Mr Fran Deal, patient's POA, I explained to him the critical condition of the patient, his diagnosis, treatment options and prognosis. He verbalized understanding and agreed with the plan. I answered all questions.
[2016-09-21 14:21] LABS: ABG Base Excess 5.2 mEq/L (-2.0 to 3.0); ABG HCO3 35.2 mEQ/L (21-27); ABG Oxygen Saturation 99 % (95-98); ABG PH 7.21 pH Units (7.32-7.45); ABG PO2 142 mmHg (85-104); ABG TCO2 37.9 mEq/L (20-26)
[2016-09-21 14:22] LABS: Blood Gas FiO2 100 %
[2016-09-21 14:23] LABS: ABG PCO2 88 mmHg (35-45)
[2016-09-21 14:26] LABS: Ionized Calcium 1.22 mmol/L (1.15-1.35)
[2016-09-21] MEDS ORDERED: Piperacillin/Tazobactam 2.25 GM in D5% in Water (Mini-Bag+) 100 ML IVPB STA (14:36)
[2016-09-21 14:39] LABS: Albumin/Globulin Ratio 1.1 (1.1-2.2); Bilirubin,Total 1.6 mg/dL (0.2-1.2); Calcium 10.1 mg/dL (8.6-10.8); Globulin 3.6 g/dL (2.4-3.5); Magnesium 2.4 mg/dL (1.6-2.6); Phosphorous 4.9 mg/dL (2.3-4.7); Potassium 5.1 mEq/L (3.5-4.5); Total Protein 7.6 g/dL (6.0-8.3)
[2016-09-21] MEDS ORDERED: Piperacillin/Tazobactam 3.375 GM in D5% in Water (Mini-Bag+) 100 ML IVPB SCH (15:00)
[2016-09-21] MEDS: Ipratropium/Albuterol Neb 3 ML IH SCH ×2 (16:20→20:01)
[2016-09-21 16:31] LABS: ABG Base Excess 4.5 mEq/L (-2.0 to 3.0); ABG HCO3 33.1 mEQ/L (21-27); ABG Oxygen Saturation 83 % (95-98); ABG PH 7.27 pH Units (7.32-7.45); ABG PO2 55 mmHg (85-104); ABG TCO2 35.3 mEq/L (20-26)
[2016-09-21 16:34] LABS: ABG PCO2 72 mmHg (35-45); Blood Gas FiO2 40 %
[2016-09-21] MEDS ORDERED: Aminoglycoside Consult 1 EACH MC ONE (16:38)
--- NOTE | 2016-09-21 16:43 | Nephrology Progress Note ---
Date of Encounter: 09/21/16 Time of Encounter: 16:38 - Assessment and Plan (1) Acute renal failure superimposed on stage 3 chronic kidney disease Current Visit: Yes Status: Acute Creatinine and BUN are minimally changed. Patient agreed last night and this morning to begin dialysis. He changed his mind yesterday then agreed to dialysis this morning. Avoid nephrotoxins if possible. Adjust medications for renal function. Continue to follow labs. CXR during rapid response indicated an infiltrate consistent with pneumonia. He was started on Zosyn. He was started on Bipap secondary to respiratory difficulty and taken back to dialysis for fluid removal. He experienced shock with decreased LOC while on dialysis which was subsequently discontinued and he was returned to his room. He subsequently per the primary team (he was a DNR. (2) CHF (congestive heart failure) Current Visit: Yes Status: Acute Improving edema. Continue with furosemide. Qualifiers: Congestive heart failure type: systolic Congestive heart failure chronicity : chronic Qualified Code(s): I50.22 - Chronic systolic (congestive) heart failure (3) Azotemia Current Visit: Yes Status: Acute Azotemia not significantly improving. HD initiated today. (4) Hyperphosphatemia Current Visit: Yes Status: Acute Follow phosphorus. Renal diet. Phosphate binder started. (5) Anemia Current Visit: No Status: Acute Iron deficiency. Gave iron dextran. vitamin b12 and folate are replete. Qualifiers: Qualified Code(s): D64.9 - Anemia, unspecified Subjective Principal diagnosis: CHF, DARON Interval history: Patient seen and evaluated multiple times throuout the day. This morning I met with him and his EX- as he had agreed to dialysis. Later I saw him on dialysis he had become less responsive, but seemed to be tolerating dialysis well. He was sent back to his room after dialysis and later a rapid response was called. His respirations were labored and he had increased rhonchi despite the recent dialysis and thus was sent back for more fluid removal. During dialysis his systolic blood pressure decreased to the 60s. Fluid was given and his SBP increased to the mid 90s. Dialysis was discontinued. I did speak with Dr. Rock multiple times regarding his care including after the rapid response and after visiting him in dialysis for the second time. She informed me that the family had decided to make the patient DNR. [id number] - Dr. Gilmore informs me that the patient has . Objective - Vital Signs Vital signs: Vital Signs Temp Pulse Resp BP Pulse Ox 09/21/16 14:52 33 100 09/21/16 14:49 33 100 09/21/16 14:45 98/76 09/21/16 14:30 97.4 F L 33 98/76 09/21/16 13:15 97.4 F L 26 105/61 09/21/16 13:00 118/49 09/21/16 12:45 109/64 09/21/16 12:30 116/64 09/21/16 12:15 131/73 09/21/16 12:03 73 19 121/73 92 L 09/21/16 12:00 119/72 09/21/16 11:45 126/72 09/21/16 11:30 122/73 09/21/16 11:15 117/73 09/21/16 11:00 97.6 F 22 124/76 09/21/16 07:50 97.6 F 70 18 142/67 94 L 09/21/16 04:05 97.6 F 80 20 124/64 09/20/16 21:03 18 94 L 09/20/16 19:25 97.7 F 73 16 137/93 94 L Intake and Output 09/21/16 09/21/16 09/21/16 07:59 15:59 23:59 Intake Total 1200 / 1200 Output Total 2600 / 2600 Balance -1400 / -1400 Intake: Intake, Rinseback and 1200 / 1200 Flushes Output: Total Dialysis Output 2600 / 2600 Other: Weight 103.1 kg Blood Glucose* 126 116 Hemodialysis Net Fluid 0 Removed (mL) Patient Weight 09/21/16 23:59 Weight 103.1 kg - General Appearance General appearance: Present: well-developed, well-nourished, chronically ill, frail Exam: on bipap. EENT: Present: ATNC Neck: Present: supple Respiratory: Present: course breath sounds, rhonchi Cardiology: Present: edema, regular rate, regular rhythm Dialysis Vascular Access: Venous Catheter Gastrointestinal: Present: normoactive bowel sounds, no tenderness Integumentary: Present: warm and dry Neurologic: Present: confused, obtunded Musculoskeletal: Present: no cyanosis Additional Comments: unobtainable. - Lab 09/21/16 14:09 02/23/17 14:09 Most recent lab results ABG pH 7.27 pH Units (7.32-7.45) L 09/21/16 16:18 ABG pCO2 72 mmHg (35-45) H* 09/21/16 16:18 ABG pO2 55 mmHg (85-104) L 09/21/16 16:18 ABG HCO3 33.1 mEQ/L (21-27) H 09/21/16 16:18 ABG O2 Saturation 83 % (95-98) L 09/21/16 16:18 Calcium 10.1 mg/dL (8.6-10.8) 09/21/16 14:09 Phosphorus 4.9 mg/dL (2.3-4.7) H 09/21/16 14:09 Magnesium 2.4 mg/dL (1.6-2.6) 09/21/16 14:09 Urine Creatinine 65 mg/dL 09/17/16 15:00 Ur Total Protein 24 Hr 302 mg/day (0-299) H 09/17/16 15:00 Urine Sodium 44.0 mEq/L 09/10/16 13:50 Urine Total Protein 19 mg/dL (1-14) H 09/17/16 15:00 - VTE Documentation of Mechanical Device: Graduated compression elastic hosiery Consult Discharge Plan - Plan Referrals: NO,PCP [Primary Care Provider] - (Patient will follow up with ECF pcp) Lenore Gil DO [Partnered Physician] - 10/03/16 1:15 pm
[2016-09-21] MEDS ORDERED: Vancomycin 1,500 MG in D5% in Water 250 ML IVPB SCH (17:00)
[2016-09-21 17:02] VITALS: BP 57/39
[2016-09-21] MEDS ORDERED: Vancomycin 1,500 MG in D5% in Water 250 ML IVPB ONE (17:04)
--- NOTE | 2016-09-21 17:18 | Discharge Summary ---
Date of Encounter: 09/21/16 Time of Encounter: 17:16 - Discharge Diagnosis (1) Acute metabolic encephalopathy Priority: Primary Status: Acute (2) Sepsis Priority: Primary Status: Acute Qualifiers: Sepsis type: sepsis due to unspecified organism Qualified Code(s): A41.9 - Sepsis, unspecified organism (3) Aspiration pneumonia Priority: Primary Status: Acute Qualifiers: Aspiration pneumonia type: unspecified Laterality: right Lung location: lower lobe of lung Qualified Code(s): J69.0 - Pneumonitis due to inhalation of food and vomit (4) Acute renal failure superimposed on stage 3 chronic kidney disease Priority: Primary Status: Acute (5) Acute on chronic systolic heart failure Priority: Primary Status: Acute (6) Acute on chronic respiratory failure with hypoxemia Priority: Primary Status: Acute (7) Pulmonary hypertension Priority: Primary Status: Acute (8) Azotemia Priority: Primary Status: Acute (9) Diabetes Priority: Primary Status: Acute Qualifiers: Diabetes mellitus type: type 2 Diabetes mellitus complication status: with kidney complications Diabetes mellitus complication detail: with chronic kidney disease Diabetes mellitus termite control service representative insulin use: with termite control service representative use Chronic kidney disease stage: stage 3 (moderate) Qualified Code(s): E11.22 - Type 2 diabetes mellitus with diabetic chronic kidney disease; N18.3 - Chronic kidney disease, stage 3 (moderate); Z79.4 - MCC (current) use of insulin (10) History of atrial fibrillation Priority: Secondary Status: Chronic (11) Hyperphosphatemia Priority: Primary Status: Acute (12) HTN (hypertension) Priority: Primary Status: Acute Qualifiers: Hypertension type: essential hypertension Qualified Code(s): I10 - Essential (primary) hypertension (13) Anemia Priority: Secondary Status: Chronic Qualifiers: Anemia type: other cause Other causes of anemia: chronic disease, kidney Qualified Code(s): N18.9 - Chronic kidney disease, unspecified; D63.1 - Anemia in chronic kidney disease - Discharge Medications Home Medications: Aspirin Enteric Coated [Aspirin EC] 81 mg PO DAILY 03/12/16 [History] Carvedilol 3.125 mg PO BID 03/12/16 [History] Insulin LISPRO [Humalog] 2 - 12 unit SQ AD 03/12/16 [History] Ipratropium/Albuterol Neb [Duoneb] 3 ml IH Q6H 03/12/16 [History] Multivitamin [One Daily Essential] 1 each PO DAILY 03/12/16 [History] Ondansetron HCl [Zofran] 4 mg PO Q6H PRN 03/12/16 [History] Simvastatin [Zocor] 20 mg PO HS 03/12/16 [History] Sucralfate [Carafate] 1 gm PO QIDAC 30 Days 03/15/16 [Rx] Darbepoetin [Aranesp] 100 mcg SQ QMONTH 09/09/16 [History] Fluticasone/Salmeterol [Advair 500-50 Diskus] 1 puff IH BID 09/09/16 [History] Furosemide [Lasix] 80 mg PO BID 09/09/16 [History] Guaifenesin [Diabetic Tussin Ex] 100 mg PO Q6H PRN 09/09/16 [History] Loratadine [Allergy Relief] 10 mg PO DAILY 09/09/16 [History] Omeprazole [PriLOSEC] 20 mg PO BID 09/09/16 [History] Polyvinyl Alcohol [Artificial Tears] 1 drop OP TID PRN 09/09/16 [History] Sodium Chloride/Aloe Vera [[place] Saline Nasal Gel [facility]] 1 spr NS TID 09/09/16 [ History] Allergies/Adverse Reactions: Allergies No Known Allergies Allergy (Verified 08/12/15 10:35) Procedures/tests Complete & Pending: Procedures Performed prior 72 hours Category Date Time Status IR cvc insert non tunnel [IR] Stat IR 09/20/16 07:36 Completed IR us guide needle place [IR] Routine IR 09/20/16 Completed ECG 12 lead ECG [ECG] Routine Y 09/21/16 14:56 Ordered Date of admission: 09/09/16 18:07 Primary care physician: PCP NO Consults: 09/09/16 18:47 Consult to Yam Curer [CONS] Routine Reason for SW Consult: from [facility] and will return on DC 09/09/16 21:52 Consult to Nephrology [CONS] Routine Consulting Provider: Kidney Danna/JASWINDER/BONNIE/ZAIDA Reason for Consult: Established patient- fluid overload on lasix creatinine elevated Time Notified: 21:53 Call Completed: No 09/11/16 17:49 Consult to Cardiology [CONS] Routine Comment: Consulting Provider: Cardiology Danna Reason for Consult: please evaluate for worsened LVEF to 25-30% from 40% on last ECHO for the need of LHC. betty lebron Call Completed: No 09/13/16 11:38 Consult to Occupational Therapy [CONS] Routine Comment: Evaluate, develop and implement POC Consult to Physical Therapy [CONS] Routine Comment: Evaluate, develop and implement POC 09/20/16 07:45 Consult to Dialysis [CONS] ONCE 09/20/16 08:56 Consult to Interventional Radiology [CONS] Stat Consulting Provider: Radiology Interventional Cols Reason for Consult: Place temporary HD line Time Notified: 08:55 Call Completed: Yes 09/21/16 10:09 Consult to Palliative Care [CONS] Routine Comment: goasl of care. pt is refusing dialysis. Consulting Provider: Palliative Care Danna - Patient Status Disposition: Condition: Fair - Discharge Instructions Follow Up With: NORM,PCP [Primary Care Provider] - (Patient will follow up with ECF pcp) Lenore Gil DO [Partnered Physician] - 10/03/16 1:15 pm Hospital course: Mr. Deal is a 85 year old male with past medical history of chronic systolic heart failure LV EF 25% status post biventricular ICD, CKD 3, chronic respiratory failure oxygen dependent at 3 L, atrial fibrillation, diabetes, hypertension, and pulmonary hypertension. He presented with worsening dyspnea and lower extremity edema. BNP 2601. Chest x-ray show pulmonary vascular congestion. Patient admitted with acute on chronic respiratory failure secondary to acute systolic heart failure and acute renal failureover CKD 3. Pt received aggressive IV diuresis along with albumin but developed DARON and azotemia. He was continued on Lasix 60 mg bid with no improvement of his kidney function. Patient was recommended to start hemodialysis and he underwent placement of permacath on 09/20; however, patient refused HD that day and also this morning. His ex- convinced patient to have his first dialyisis today. Pt developed respiratory distress and hypoxia while on dialysis. On arrival to his room, patient was unresponsive and rapid response team was paged. Mr Brett Deal, his POA, confirmed patient is [id number]. ABG showed respiratory acidosis. Chest x-ray showed a right basilar infiltrate with small pleural effusion. He was started on BiPAP, IV Zosyn, IV vancomycin, duonebs. Repeat ABG showed minimal improvement of respiratory acidosis. Patient at 16:39. I called his nephew, Brett Deal, his POA. I answered all questions. - Time Spent with Patient Total time spent providing and/or coordinating discharge services: - Constitutional Vitals: Temp Pulse Resp BP Pulse Ox 97.4 F L 73 32 57/39 100 09/21/16 16:30 09/21/16 12:03 09/21/16 16:30 09/21/16 17:01 09/21/16 14:52 General appearance: Present: cooperative, A&O X 2, pleasant, no acute distress, answers questions appropriately - VTE Documentation of Mechanical Device: Graduated compression elastic hosiery
== END 2016-09-21 16:39 | disposition expired | DRG 291 ==
LOC: EMEROO 12:40 → 2ANU 12:40 → SUATTDRO 18:07 → 2ANU 18:19
PROVIDERS: ADMIT Internal Medicine; ATTEND Internal Medicine